=== PATIENT | female | born 1940 | race Caucasian/White ===

== ENCOUNTER 2018-11-29 13:14 | Observation (INO) | payer MEDICARE, MEDICAID ==
[2018-11-29] MEDS ORDERED: Sodium Chloride 0.9% 10 ML Syringe FLUSH PRN (13:57)
[2018-11-29] MEDS ORDERED: Acetaminophen 325 MG Tab PO PRN (15:57)
--- NOTE | 2018-11-29 16:10 | PCM.HP ---
H&P History of Present Illness - General Date of Service: 11/29/18 Admit Problem/Dx: Admission Diagnosis/Problem Admission Diagnosis/Problem Weakness Source of Information: Patient History Limitations: Reports: No Limitations - History of Present Illness Initial Comments - Free Text/Narative: This is a 78yo F with decreased appetite and decreased hydration for the past 3 days. She has been having bowel issues for months or longer. She has frequent loose stools that last all day and has been ongoing. She feels very weak and fatigued. Onset of Symptoms: Reports: Gradual Duration of Symptoms: Reports: Day(s):, Week(s):, Getting Worse Location: Reports: Generalized Severity: Moderate Improves with: Reports: None Worsens with: Reports: Movement Back Pain Score (Numeric/FACES): 5 - Related Data Allergies/Adverse Reactions: Allergies Allergy/AdvReac Type Severity Reaction Status Date / Time sulfamethoxazole Allergy yeast Verified 11/29/18 13:24 [From Bactrim] infection trimethoprim [From Bactrim] Allergy yeast Verified 11/29/18 13:24 infection amoxicillin [Amoxicillin] AdvReac Nausea Verified 11/29/18 13:24 Home Medications: Home Meds FLUoxetine [PROzac] 20 mg PO DAILY 01/27/14 [History] Lisinopril/Hydrochlorothiazide [Lisinopril-Hctz 10-12.5 mg Tab] 1 each PO DAILY 01/27/14 [History] Omeprazole [Prilosec] 20 mg PO DAILY 01/27/14 [History] traMADol [Ultram] 50 mg PO ASDIRECTED PRN 01/27/14 [History] Budesonide/Formoterol Fumarate [Symbicort 80-4.5 Mcg Inhaler] 2 inh INH BID [History] Rivaroxaban [Xarelto] 20 mg PO DAILY 11/29/18 [History] Past Medical History HEENT History: Reports: Cataract, Impaired Vision Cardiovascular History: Reports: High Cholesterol, Hypertension Respiratory History: Reports: Asthma, COPD Gastrointestinal History: Reports: GERD Genitourinary History: Reports: Urinary Incontinence 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 walking tolerance: approx 5 min, SOB noted Social & Family History - Family History Family Medical History: Noncontributory Cardiac: Reports: Pacemaker Musculoskeletal: Reports: Arthritis Hematologic: Reports: None - Tobacco Use Smoking Status *Q: Former Smoker Used Tobacco, but Quit: Yes Month/Year Tobacco Last Used: 1991 - Caffeine Use Caffeine Use: Reports: Coffee - Alcohol Use Days Per Week of Alcohol Use: 7 Number of Drinks Per Day: 2 Total Drinks Per Week: 14 Date of Last Drink: 11/27/18 - Recreational Drug Use Recreational Drug Use: No H&P Review of Systems - Review of Systems: Review Of Systems: See Below Exam - Exam Exam: See Below - Vital Signs Vital Signs: Last Vital Signs Temp 37.4 C 11/29/18 15:47 Pulse 66 11/29/18 15:47 Resp 20 11/29/18 15:47 BP 151/74 H 11/29/18 15:47 Pulse Ox 98 11/29/18 15:47 Weight: 167.2 kg - Exam General: Alert, Oriented, Cooperative HEENT: PERRLA, Conjunctiva Clear, EACs Clear, EOMI Neck: Supple, Trachea Midline Lungs: Clear to Auscultation, Normal Respiratory Effort Cardiovascular: Regular Rate, Regular Rhythm GI/Abdominal Exam: Normal Bowel Sounds, Soft, Non-Tender Back Exam: Normal Inspection Extremities: Normal Inspection, Normal Range of Motion, Non-Tender Peripheral Pulses: 2+: Dorsalis Pedis (L), Dorsalis Pedis (R) Skin: Warm, Dry, Intact - Patient Data Lab Results Last 24 hrs: Laboratory Results - last 24 hr 11/29/18 11/29/18 Range/Units 13:20 13:20 WBC 5.9 (4.0-11.0) K/uL RBC 3.73 L (3.80-5.80) M/uL Hgb 12.8 (11.5-16.5) g/dL Hct 38.5 (37.0-47.0) % MCV 103 H (76-96) fL MCH 34.3 H (27.0-32.0) pg MCHC 33.2 (31.0-35.0) g/dL RDW 13.3 (11.0-16.0) % Plt Count 207 D (150-500) K/uL MPV 9.5 (6.0-10.0) fL Neut % (Auto) 80.0 H (45.0-70.0) % Lymph % (Auto) 10.1 L (20.0-40.0) % [place] % (Auto) 9.4 (3.0-10.0) % Eos % (Auto) 0.2 L (1.0-5.0) % Baso % (Auto) 0.3 (0.0-0.5) % Neut # (Auto) 4.74 (2.00-7.50) K/uL Lymph # (Auto) 0.60 L (1.50-4.00) K/uL [place] # (Auto) 0.56 (0.20-0.80) K/uL Eos # (Auto) 0.01 L (0.04-0.40) K/uL Baso # (Auto) 0.02 (0.02-0.10) K/uL Sodium 137 (136-145) mmol/L Potassium 3.6 D (3.5-5.1) mmol/L Chloride 102 (98-107) mmol/L Carbon Dioxide 22.8 (21.0-32.0) mmol/L Anion Gap 15.8 H (5.0-15.0) mmol/L BUN 11 D (8-26) mg/dL Creatinine 1.18 H (0.55-1.02) mg/dL Est Cr Clr Drug Dosing 33.93 mL/min Estimated GFR (MDRD) 44 L (>60) MLS/MIN BUN/Creatinine Ratio 9.3 (6-25) Glucose 122 H (74-100) mg/dL Calcium 9.1 (8.5-10.1) mg/dL Total Bilirubin 0.7 D (0.0-1.0) mg/dL AST 29 (15-37) U/L ALT 26 (12-78) U/L Alkaline Phosphatase 76 (46-116) U/L Troponin I < 0.017 (0.000-0.060) ng/mL B-Natriuretic Peptide 1827 H D (0-450) pg/mL Total Protein 7.2 (6.4-8.2) g/dL Albumin 3.5 (3.4-5.0) g/dL Globulin 3.7 (2.2-4.2) g/dL Albumin/Globulin Ratio 0.9 (0.8-2.0) TSH, Ultra Sensitive 2.607 D (0.358-3.740) uIU/mL Result Diagrams: 11/29/18 13:20 11/29/18 13:20 - Problem List (1) Dehydration SNOMED Code(s): 94262843 ICD Code: E86.0 - DEHYDRATION Status: Acute Priority: High Current Visit: Yes Problem List Initiated/Reviewed/Updated: Yes Orders Last 24hrs: Active Orders 24 hr Category Date Time Status Patient Status [ADT] Routine ADT 11/29/18 15:47 Ordered EKG Documentation Completion [RC] ASDIRECTED Care 11/29/18 13:20 Active Oxygen Therapy [RC] PRN Care 11/29/18 15:47 Ordered Up With Assistance [RC] ASDIRECTED Care 11/29/18 15:46 Ordered Vital Signs [RC] Q4H Care 11/29/18 15:47 Ordered Chest 1V Frontal [CR] Stat Exams 11/29/18 13:20 Taken CULTURE MRSA SURVEY [RM] Routine Lab 11/29/18 16:01 Ordered UA W/MICROSCOPIC [URIN] Routine Lab 11/29/18 16:01 Ordered Acetaminophen [Tylenol] Med 11/29/18 15:57 Ordered 650 mg PO Q6H PRN Dextrose 5%-Lactated Ringers @ 150 MLS/HR(1,000ml) Med 11/29/18 16:00 Ordered Dextrose 5%-Lactated Ringers 1,000 ml IV ASDIRECTED Sodium Chloride 0.9% [Saline Flush] Med 11/29/18 13:57 Active 10 ml FLUSH ASDIRECTED PRN Peripheral IV Insertion Adult [OM.PC] Routine Oth 11/29/18 13:57 Ordered Medication Orders Acetaminophen (Tylenol) 650 mg PO Q6H PRN PRN Reason: Pain Dextrose/Lactated Ringer's (Dextrose 5%-Lactated Ringers) 1,000 mls @ 150 mls/ hr IV ASDIRECTED AUGUST Sodium Chloride (Saline Flush) 10 ml FLUSH ASDIRECTED PRN PRN Reason: Keep Vein Open Assessment/Plan Comment:: Counseled on hydration and elevated BNP. Discussed close monitoring and f/u labs in am. Continue gentle hydration at this time. F/u Stool testing.
[2018-11-29] MEDS ORDERED: Acetaminophen 650 MG Tab.ER ONE (16:31)
[2018-11-29] MEDS: Dextrose 5%-Lactated Ringers 1,000 ML IV SCH ×2 (16:38→23:04)
[2018-11-29] MEDS ORDERED: traMADol 50 MG Tab PO PRN (17:05)
--- NOTE | 2018-11-29 17:20 | CR ---
DATE OF SERVICE: 11/29/18 CLINICAL DATA: not feeling well AP PORTABLE CHEST: Comparison is made to a prior exam dated 06/24/15. There is a cardiac pacer overlying the left chest with the distal pacer wires in the region of the right atrium and right ventricle. The heart size is normal. There is calcification of the aortic arch. The lungs are clear. No pneumothorax. No pleural effusions. No areas of consolidation. No evidence of acute intrathoracic disease. [id number] [facility]
[2018-11-29] MEDS ORDERED: Docusate Sodium 100 MG Cap PO PRN (17:37)
[2018-11-29] MEDS ORDERED: Fluconazole 150 MG Tab PO ONE (17:38)
[2018-11-29] MEDS ORDERED: Promethazine 12.5 MG in Sodium Chloride 0.9% 50 ML IV PRN (17:39)
[2018-11-29] MEDS ORDERED: Morphine 2 MG/ML Syringe IVPUSH PRN (17:40)
[2018-11-29] MEDS: Oseltamivir 75 MG Cap PO SCH (20:30)
[2018-11-29] MEDS: Non-Formulary Medication 1 Each (Budesonide/Formoterol Fumarate [Symbicort 80-4.5 Mcg Inha INH SCH (20:33)
[2018-11-29] MEDS ORDERED: RIVAROXABAN 20 MG PO SCH (21:00)
[2018-11-29] MEDS: LISINOPRIL 40 MG PO SCH (22:58)
[2018-11-30 07:51] VITALS: BP 158/86
[2018-11-30] MEDS ORDERED: Omeprazole 20 MG Cap.CR PO SCH ×2 (08:00→20:00)
[2018-11-30] MEDS ORDERED: FLUoxetine 20 MG Cap PO SCH (08:00)
[2018-11-30] MEDS: Oseltamivir 75 MG Cap PO SCH (08:16)
[2018-11-30] MEDS: Non-Formulary Medication 1 Each (Budesonide/Formoterol Fumarate [Symbicort 80-4.5 Mcg Inha INH SCH (08:16)
[2018-11-30] MEDS: LISINOPRIL 40 MG PO SCH (09:29)
--- NOTE | 2018-11-30 10:28 | PCM.PN ---
- General Info Date of Service: 11/30/18 Subjective Update: Patient feels 50% improved. She does continue to feel weak. She has a slightly improved appetite. She denies any other issues at this time. Functional Status: Reports: Tolerating Diet, Ambulating - Review of Systems General: Reports: Weakness HEENT: Reports: No Symptoms Pulmonary: Reports: No Symptoms Cardiovascular: Reports: No Symptoms Gastrointestinal: Reports: Diarrhea Genitourinary: Reports: No Symptoms Musculoskeletal: Reports: No Symptoms - Patient Data Vitals - Most Recent: Last Vital Signs Temp 36.8 C 11/30/18 07:49 Pulse 85 11/30/18 07:49 Resp 18 11/30/18 07:49 BP 158/86 H 11/30/18 07:49 Pulse Ox 97 11/30/18 07:49 Weight - Most Recent: 77.111 kg Lab Results Last 24 Hours: Laboratory Results - last 24 hr 11/29/18 11/29/18 11/29/18 Range/Units 13:20 13:20 16:00 WBC 5.9 (4.0-11.0) K/uL RBC 3.73 L (3.80-5.80) M/uL Hgb 12.8 (11.5-16.5) g/dL Hct 38.5 (37.0-47.0) % MCV 103 H (76-96) fL MCH 34.3 H (27.0-32.0) pg MCHC 33.2 (31.0-35.0) g/dL RDW 13.3 (11.0-16.0) % Plt Count 207 D (150-500) K/uL MPV 9.5 (6.0-10.0) fL Neut % (Auto) 80.0 H (45.0-70.0) % Lymph % (Auto) 10.1 L (20.0-40.0) % [place] % (Auto) 9.4 (3.0-10.0) % Eos % (Auto) 0.2 L (1.0-5.0) % Baso % (Auto) 0.3 (0.0-0.5) % Neut # (Auto) 4.74 (2.00-7.50) K/uL Lymph # (Auto) 0.60 L (1.50-4.00) K/uL [place] # (Auto) 0.56 (0.20-0.80) K/uL Eos # (Auto) 0.01 L (0.04-0.40) K/uL Baso # (Auto) 0.02 (0.02-0.10) K/uL Sodium 137 (136-145) mmol/L Potassium 3.6 D (3.5-5.1) mmol/L Chloride 102 (98-107) mmol/L Carbon Dioxide 22.8 (21.0-32.0) mmol/L Anion Gap 15.8 H (5.0-15.0) mmol/L BUN 11 D (8-26) mg/dL Creatinine 1.18 H (0.55-1.02) mg/dL Est Cr Clr Drug Dosing 33.93 mL/min Estimated GFR (MDRD) 44 L (>60) MLS/MIN BUN/Creatinine Ratio 9.3 (6-25) Glucose 122 H (74-100) mg/dL Calcium 9.1 (8.5-10.1) mg/dL Total Bilirubin 0.7 D (0.0-1.0) mg/dL AST 29 (15-37) U/L ALT 26 (12-78) U/L Alkaline Phosphatase 76 (46-116) U/L Troponin I < 0.017 (0.000-0.060) ng/mL B-Natriuretic Peptide 1827 H D (0-450) pg/mL Total Protein 7.2 (6.4-8.2) g/dL Albumin 3.5 (3.4-5.0) g/dL Globulin 3.7 (2.2-4.2) g/dL Albumin/Globulin Ratio 0.9 (0.8-2.0) TSH, Ultra Sensitive 2.607 D (0.358-3.740) uIU/mL Urine Color Yellow Urine Appearance Clear (CLEAR) Urine pH 6.0 (5.0-8.0) Ur Specific [place] 1.025 (1.003-1.030) Urine Protein 100 H (NEGATIVE) mg/dL Urine Glucose (UA) Negative (NEGATIVE) mg/dL Urine Ketones 15 H (NEGATIVE) mg/dL Urine Occult Blood Moderate H (NEGATIVE) Urine Nitrite Negative (NEGATIVE) Urine Bilirubin Small H (NEGATIVE) Urine Urobilinogen 0.2 (0.2-1.0) E.U./dL Ur Leukocyte Esterase Negative (NEGATIVE) Urine RBC 0-5 H /HPF Urine WBC 0-5 H /HPF Ur Squamous Epith Cells Moderate /HPF Urine Bacteria Moderate H /HPF 11/30/18 11/30/18 Range/Units 07:10 07:10 WBC 3.3 L D (4.0-11.0) K/uL RBC 3.14 L (3.80-5.80) M/uL Hgb 10.7 L (11.5-16.5) g/dL Hct 32.8 L (37.0-47.0) % MCV 105 H (76-96) fL MCH 34.1 H (27.0-32.0) pg MCHC 32.6 (31.0-35.0) g/dL RDW 13.2 (11.0-16.0) % Plt Count 182 (150-500) K/uL MPV 9.6 (6.0-10.0) fL Neut % (Auto) 49.1 (45.0-70.0) % Lymph % (Auto) 30.2 (20.0-40.0) % [place] % (Auto) 19.8 H (3.0-10.0) % Eos % (Auto) 0.6 L (1.0-5.0) % Baso % (Auto) 0.3 (0.0-0.5) % Neut # (Auto) 1.64 L (2.00-7.50) K/uL Lymph # (Auto) 1.01 L (1.50-4.00) K/uL [place] # (Auto) 0.66 (0.20-0.80) K/uL Eos # (Auto) 0.02 L (0.04-0.40) K/uL Baso # (Auto) 0.01 L (0.02-0.10) K/uL Sodium 138 (136-145) mmol/L Potassium 4.1 (3.5-5.1) mmol/L Chloride 101 (98-107) mmol/L Carbon Dioxide 27.6 D (21.0-32.0) mmol/L Anion Gap 13.5 (5.0-15.0) mmol/L BUN 9 (8-26) mg/dL Creatinine 0.85 D (0.55-1.02) mg/dL Est Cr Clr Drug Dosing 47.10 mL/min Estimated GFR (MDRD) > 60 (>60) MLS/MIN BUN/Creatinine Ratio 10.6 (6-25) Glucose 117 H (74-100) mg/dL Calcium 8.5 (8.5-10.1) mg/dL Total Bilirubin 0.4 D (0.0-1.0) mg/dL AST 33 (15-37) U/L ALT 23 (12-78) U/L Alkaline Phosphatase 58 (46-116) U/L Troponin I (0.000-0.060) ng/mL B-Natriuretic Peptide (0-450) pg/mL Total Protein 6.0 L (6.4-8.2) g/dL Albumin 2.7 L (3.4-5.0) g/dL Globulin 3.3 (2.2-4.2) g/dL Albumin/Globulin Ratio 0.8 (0.8-2.0) TSH, Ultra Sensitive (0.358-3.740) uIU/mL Urine Color Urine Appearance (CLEAR) Urine pH (5.0-8.0) Ur Specific [place] (1.003-1.030) Urine Protein (NEGATIVE) mg/dL Urine Glucose (UA) (NEGATIVE) mg/dL Urine Ketones (NEGATIVE) mg/dL Urine Occult Blood (NEGATIVE) Urine Nitrite (NEGATIVE) Urine Bilirubin (NEGATIVE) Urine Urobilinogen (0.2-1.0) E.U./dL Ur Leukocyte Esterase (NEGATIVE) Urine RBC /HPF Urine WBC /HPF Ur Squamous Epith Cells /HPF Urine Bacteria /HPF Abdi Results Last 24 Hours: Microbiology 11/29/18 16:00 Urine Culture - Preliminary Urine, Voided No Growth 11/29/18 17:20 Influenza Type A Antigen Screen - Final Nasal Aspirate, Unspecified Positive Influenza A Ag Influenza Type B Antigen Screen - Final NEGATIVE INFLUENZA B VIRUS AG REFERENCE RANGE: NEGATIVE Med Orders - Current: Current Medications Acetaminophen (Tylenol) 650 mg PO Q6H PRN PRN Reason: Pain Last Admin: 11/29/18 16:36 Dose: 650 mg Amlodipine Besylate (Norvasc) 2.5 mg PO BEDTIME AUGUST Fluoxetine HCl (Prozac) 20 mg PO DAILY AUGUST Last Admin: 11/30/18 09:29 Dose: Not Given Dextrose/Lactated Ringer's (Dextrose 5%-Lactated Ringers) 1,000 mls @ 150 mls/ hr IV ASDIRECTED [facility] Last Admin: 11/29/18 23:04 Dose: 150 mls/hr Lisinopril (Prinivil) 20 mg PO DAILY [facility] Last Admin: 11/30/18 09:29 Dose: Not Given Non-Formulary Medication (Budesonide/Formoterol Fumarate [Symbicort 80-4.5 Mcg Inhaler]) 2 inh INH BID [facility] Last Admin: 11/30/18 08:16 Dose: 2 inh Omeprazole (Omeprazole) 20 mg PO DAILY [facility] Last Admin: 11/30/18 09:28 Dose: Not Given Oseltamivir Phosphate (Tamiflu) 75 mg PO BID [facility] Stop: 12/04/18 20:00 Last Admin: 11/30/18 08:16 Dose: 75 mg Rivaroxaban (Xarelto) 20 mg PO DAILY@1800 [facility] Last Admin: 11/29/18 20:57 Dose: 20 mg Sodium Chloride (Saline Flush) 10 ml FLUSH ASDIRECTED PRN PRN Reason: Keep Vein Open Tramadol HCl (Ultram) 50 mg PO Q4H PRN PRN Reason: Pain Last Admin: 11/29/18 20:58 Dose: 50 mg Discontinued Medications Acetaminophen (Tylenol Arthritis Pain) Confirm Administered Dose 650 mg .ROUTE .STK-MED ONE Stop: 11/29/18 16:32 Last Admin: 11/29/18 16:35 Dose: Not Given Non-Formulary Medication (Lisinopril/Hydrochlorothiazide [Lisinopril-Hctz 10- 12.5 Mg Tab]) 1 each PO DAILY [facility] Tramadol HCl (Ultram) 50 mg PO ASDIRECTED PRN PRN Reason: Pain - Exam General: Alert, Oriented, Cooperative HEENT: Pupils Equal, Pupils Reactive, EOMI Neck: Supple Lungs: Clear to Auscultation, Normal Respiratory Effort Cardiovascular: Regular Rate, Regular Rhythm GI/Abdominal Exam: Soft, Non-Tender, Abnormal Bowel Sounds (hyperactive) Extremities: Normal Inspection - Problem List & Annotations (1) Dehydration SNOMED Code(s): 87453629 Code(s): E86.0 - DEHYDRATION Status: Acute Priority: High Current Visit : Yes (2) Influenza A SNOMED Code(s): 206552211 Code(s): J10.1 - FLU DUE TO OTH IDENT INFLUENZA VIRUS W OTH RESP MANIFEST Status: Acute Priority: High Current Visit: Yes (3) Diarrhea SNOMED Code(s): 81399854 Code(s): R19.7 - DIARRHEA, UNSPECIFIED Status: Acute Priority: High Current Visit: Yes Qualifiers: Diarrhea type: presumed infectious Qualified Code(s): R19.7 - Diarrhea, unspecified (4) Renal dysfunction Status: Resolved Priority: Medium Current Visit: Yes - Problem List Review Problem List Initiated/Reviewed/Updated: Yes - My Orders Last 24 Hours: My Active Orders 11/29/18 13:57 Sodium Chloride 0.9% [Saline Flush] 10 ml FLUSH ASDIRECTED PRN Peripheral IV Insertion Adult [OM.PC] Routine 11/29/18 15:46 Up With Assistance [RC] ASDIRECTED 11/29/18 15:47 Patient Status [ADT] Routine Oxygen Therapy [RC] PRN Vital Signs [RC] 00,04,08,12,16,20 11/29/18 15:57 Acetaminophen [Tylenol] 650 mg PO Q6H PRN 11/29/18 16:00 CULTURE MRSA SURVEY [RM] Routine CULTURE URINE [RM] Routine Dextrose 5%-Lactated Ringers 1,000 ml IV ASDIRECTED 11/29/18 16:11 Isolation [COMM] Stat 11/29/18 18:32 traMADol [Ultram] 50 mg PO Q4H PRN 11/29/18 20:00 Budesonide/Formoterol Fumarate [Symbicort 80-4.5 Mcg Inhaler] 2 inh INH BID Oseltamivir [Tamiflu] 75 mg PO BID 11/29/18 20:05 CLOSTRIDIUM DIFFICILE BY PCR [RM] Routine 11/29/18 21:00 Rivaroxaban [Xarelto] 20 mg PO DAILY@1800 11/29/18 23:45 Lisinopril [Prinivil] 20 mg PO DAILY 11/30/18 08:00 FLUoxetine [PROzac] 20 mg PO DAILY Omeprazole 20 mg PO DAILY 11/30/18 20:00 amLODIPine [Norvasc] 2.5 mg PO BEDTIME 11/30/18 Breakfast Regular Diet [DIET] - Plan Plan:: Counseled on hydration and elevated BNP. Discussed close monitoring and f/u labs in am. Continue gentle hydration at this time. F/u Stool testing. 11/30/18 Patient started on Tamiflu last night. Counseled on medication and continued treatment. Will discuss with family for exposure and contacts. Patient does feel she could go home as she lives with her daughter but continues to feel weak. We will discuss with daughter regarding home safety. Renal concerns and dehydration resolving.
--- NOTE | 2018-11-30 14:53 | PCM.DCSUM1 ---
Discharge Summary - Discharge Data Discharge Date: 11/30/18 Discharge Disposition: Home, Self-Care 01 Condition: Good - Discharge Diagnosis/Problem(s) (1) Dehydration SNOMED Code(s): 03994623 ICD Code: E86.0 - DEHYDRATION Status: Acute Priority: High Current Visit: Yes (2) Influenza A SNOMED Code(s): 888312938 ICD Code: J10.1 - FLU DUE TO OTH IDENT INFLUENZA VIRUS W OTH RESP MANIFEST Status: Acute Priority: High Current Visit: Yes (3) Diarrhea SNOMED Code(s): 98458830 ICD Code: R19.7 - DIARRHEA, UNSPECIFIED Status: Acute Priority: High Current Visit: Yes Qualifiers: Diarrhea type: unspecified type Qualified Code(s): R19.7 - Diarrhea, unspecified (4) Renal dysfunction Status: Resolved Priority: Medium Current Visit: Yes - Patient Instructions Diet: Usual Diet as Tolerated - Discharge Plan Prescriptions/Med Rec: Oseltamivir [Tamiflu] 75 mg PO BID #8 cap Home Medications: Home Meds FLUoxetine [PROzac] 20 mg PO DAILY 01/27/14 [History] Omeprazole [Prilosec] 20 mg PO DAILY 01/27/14 [History] traMADol [Ultram] 50 mg PO ASDIRECTED PRN 01/27/14 [History] Budesonide/Formoterol Fumarate [Symbicort 80-4.5 Mcg Inhaler] 2 inh INH BID [History] Lisinopril 20 mg PO BEDTIME 11/29/18 [History] Rivaroxaban [Xarelto] 20 mg PO DAILY 11/29/18 [History] amLODIPine [Norvasc] 2.5 mg PO BEDTIME 11/29/18 [History] Oseltamivir [Tamiflu] 75 mg PO BID #8 cap 11/30/18 [Rx] Patient Handouts: Influenza, Adult, [id number], Dehydration, Adult, Easy-to- Read, Low-FODMAP Eating Plan, Diet for Irritable Bowel Syndrome, Oseltamivir capsules Forms: ED Department Discharge Referrals: PCP,None [Primary Care Provider] - - Discharge Summary/Plan Comment DC Time >30 min.: Yes Discharge Summary/Plan Comment: Counseled patient and family on influenza and exposure. Daughters will both get prophylactic dose as both have not had the flu shot. Patient will finish course of total 5 days - 4 more days sent to [facility]. Patient to f/u in clinic for f/u chronic diarrhea, keep colonoscopy scheduled and allergy testing to be done. F/u as directed. - Patient Data Vitals - Most Recent: Last Vital Signs Temp 36.8 C 11/30/18 07:49 Pulse 85 11/30/18 07:49 Resp 18 11/30/18 07:49 BP 158/86 H 11/30/18 07:49 Pulse Ox 97 11/30/18 07:49 Weight - Most Recent: 77.111 kg Lab Results - Last 24 hrs: Laboratory Results - last 24 hr 11/29/18 11/30/18 11/30/18 Range/Units 16:00 07:10 07:10 WBC 3.3 L D (4.0-11.0) K/uL RBC 3.14 L (3.80-5.80) M/uL Hgb 10.7 L (11.5-16.5) g/dL Hct 32.8 L (37.0-47.0) % MCV 105 H (76-96) fL MCH 34.1 H (27.0-32.0) pg MCHC 32.6 (31.0-35.0) g/dL RDW 13.2 (11.0-16.0) % Plt Count 182 (150-500) K/uL MPV 9.6 (6.0-10.0) fL Neut % (Auto) 49.1 (45.0-70.0) % Lymph % (Auto) 30.2 (20.0-40.0) % [place] % (Auto) 19.8 H (3.0-10.0) % Eos % (Auto) 0.6 L (1.0-5.0) % Baso % (Auto) 0.3 (0.0-0.5) % Neut # (Auto) 1.64 L (2.00-7.50) K/uL Lymph # (Auto) 1.01 L (1.50-4.00) K/uL [place] # (Auto) 0.66 (0.20-0.80) K/uL Eos # (Auto) 0.02 L (0.04-0.40) K/uL Baso # (Auto) 0.01 L (0.02-0.10) K/uL Sodium 138 (136-145) mmol/L Potassium 4.1 (3.5-5.1) mmol/L Chloride 101 (98-107) mmol/L Carbon Dioxide 27.6 D (21.0-32.0) mmol/L Anion Gap 13.5 (5.0-15.0) mmol/L BUN 9 (8-26) mg/dL Creatinine 0.85 D (0.55-1.02) mg/dL Est Cr Clr Drug Dosing 47.10 mL/min Estimated GFR (MDRD) > 60 (>60) MLS/MIN BUN/Creatinine Ratio 10.6 (6-25) Glucose 117 H (74-100) mg/dL Calcium 8.5 (8.5-10.1) mg/dL Total Bilirubin 0.4 D (0.0-1.0) mg/dL AST 33 (15-37) U/L ALT 23 (12-78) U/L Alkaline Phosphatase 58 (46-116) U/L Total Protein 6.0 L (6.4-8.2) g/dL Albumin 2.7 L (3.4-5.0) g/dL Globulin 3.3 (2.2-4.2) g/dL Albumin/Globulin Ratio 0.8 (0.8-2.0) Urine Color Yellow Urine Appearance Clear (CLEAR) Urine pH 6.0 (5.0-8.0) Ur Specific [place] 1.025 (1.003-1.030) Urine Protein 100 H (NEGATIVE) mg/dL Urine Glucose (UA) Negative (NEGATIVE) mg/dL Urine Ketones 15 H (NEGATIVE) mg/dL Urine Occult Blood Moderate H (NEGATIVE) Urine Nitrite Negative (NEGATIVE) Urine Bilirubin Small H (NEGATIVE) Urine Urobilinogen 0.2 (0.2-1.0) E.U./dL Ur Leukocyte Esterase Negative (NEGATIVE) Urine RBC 0-5 H /HPF Urine WBC 0-5 H /HPF Ur Squamous Epith Cells Moderate /HPF Urine Bacteria Moderate H /HPF LAURA Results - Last 24 hrs: Microbiology 11/29/18 16:00 MRSA Surveillance Culture - Final Nares, Unspecified NO MRSA ISOLATED 11/29/18 20:05 Clostridioides difficile (PCR) - Final Stool / Feces - Stool, Liquid NEGATIVE CDIFF TOXIN 11/29/18 16:00 Urine Culture - Preliminary Urine, Voided No Growth 11/29/18 17:20 Influenza Type A Antigen Screen - Final Nasal Aspirate, Unspecified Positive Influenza A Ag Influenza Type B Antigen Screen - Final NEGATIVE INFLUENZA B VIRUS AG REFERENCE RANGE: NEGATIVE Med Orders - Current: Current Medications Acetaminophen (Tylenol) 650 mg PO Q6H PRN PRN Reason: Pain Last Admin: 11/29/18 16:36 Dose: 650 mg Amlodipine Besylate (Norvasc) 2.5 mg PO BEDTIME [facility] Fluoxetine HCl (Prozac) 20 mg PO DAILY [facility] Last Admin: 11/30/18 09:29 Dose: Not Given Dextrose/Lactated Ringer's (Dextrose 5%-Lactated Ringers) 1,000 mls @ 150 mls/ hr IV ASDIRECTED [facility] Last Admin: 11/29/18 23:04 Dose: 150 mls/hr Lisinopril (Prinivil) 20 mg PO BEDTIME [facility] Non-Formulary Medication (Budesonide/Formoterol Fumarate [Symbicort 80-4.5 Mcg Inhaler]) 2 inh INH BID [facility] Last Admin: 11/30/18 08:16 Dose: 2 inh Omeprazole (Omeprazole) 20 mg PO BEDTIME [facility] Oseltamivir Phosphate (Tamiflu) 75 mg PO BID [facility] Stop: 12/04/18 20:00 Last Admin: 11/30/18 08:16 Dose: 75 mg Rivaroxaban (Xarelto) 20 mg PO BEDTIME [facility] Sodium Chloride (Saline Flush) 10 ml FLUSH ASDIRECTED PRN PRN Reason: Keep Vein Open Tramadol HCl (Ultram) 50 mg PO Q4H PRN PRN Reason: Pain Last Admin: 11/29/18 20:58 Dose: 50 mg Discontinued Medications Acetaminophen (Tylenol Arthritis Pain) Confirm Administered Dose 650 mg .ROUTE .STK-MED ONE Stop: 11/29/18 16:32 Last Admin: 11/29/18 16:35 Dose: Not Given Lisinopril (Prinivil) 20 mg PO DAILY [facility] Last Admin: 11/30/18 09:29 Dose: Not Given Non-Formulary Medication (Lisinopril/Hydrochlorothiazide [Lisinopril-Hctz 10- 12.5 Mg Tab]) 1 each PO DAILY [facility] Omeprazole (Omeprazole) 20 mg PO DAILY [facility] Last Admin: 11/30/18 09:28 Dose: Not Given Rivaroxaban (Xarelto) 20 mg PO DAILY@1800 [facility] Last Admin: 11/29/18 20:57 Dose: 20 mg Tramadol HCl (Ultram) 50 mg PO ASDIRECTED PRN PRN Reason: Pain
[2018-11-30] MEDS ORDERED: AMLODIPINE 2.5 MG PO SCH (20:00)
[2018-11-30] MEDS ORDERED: RIVAROXABAN 20 MG PO SCH (20:00)
[2018-11-30] MEDS ORDERED: LISINOPRIL 40 MG PO SCH (20:00)
== END 2018-11-30 14:10 | disposition home or self-care (01) ==
LOC: LB.ED 13:14 → LB.MS 14:57 → UNDOADMOB 14:57 → LB.MS 15:47
PROVIDERS: ADMIT Family Medicine; ATTEND Family Medicine
DX: E86.0 Dehydration (principal); J10.1 Influenza due to other identified influenza virus with other respiratory manifestations; R19.7 Diarrhea, unspecified; N28.89 Other specified disorders of kidney and ureter; I10 Essential (primary) hypertension; E78.00 Pure hypercholesterolemia, unspecified; J44.9 Chronic obstructive pulmonary disease, unspecified; F32.9 Major depressive disorder, single episode, unspecified; K21.9 Gastro-esophageal reflux disease without esophagitis; Z88.2 Allergy status to sulfonamides; Z88.0 Allergy status to penicillin; Z88.1 Allergy status to other antibiotic agents; Z87.891 Personal history of nicotine dependence; Z79.51 Long term (current) use of inhaled steroids; Z79.01 Long term (current) use of anticoagulants; Z79.899 Other long term (current) drug therapy
CPT/HCPCS: 36415; 71045; 80053; 81001; 83880; 84443; 84484; 85025; 87086; 87493; 87804; 93005; 96360; 96361; 99285-25; A9270-GY; G0378; J7042

== ENCOUNTER 2019-01-13 07:24 | Day surgery (SDC) | payer MEDICARE, MEDICAID ==
[2019-01-13] MEDS ORDERED: Sodium Chloride 0.9% 1,000 ML IV SCH (08:00)
[2019-01-13] MEDS ORDERED: Metoclopramide 10 MG/2 ML SDV IV PRN (08:07)
[2019-01-13] MEDS ORDERED: Propofol 1,000 MG/100 ML SDV ONE (09:45)
[2019-01-13 11:33] VITALS: BP 145/80
--- NOTE | 2019-01-13 14:31 | OR ---
DATE OF OPERATION: 01/13/2019 PREOPERATIVE DIAGNOSIS: History of colon polyps. POSTOPERATIVE DIAGNOSIS: History of colon polyps. PROCEDURE: Colonoscopy with polypectomy. ANESTHESIA: MAC. ESTIMATED BLOOD LOSS: Minimal. COMPLICATIONS: None. INDICATION FOR THE PROCEDURE: The patient is a 78-year-old female who has personal history of colon polyps. Last colonoscopy was approximately 6 years ago. She has had slight change in bowel habits since that time, now has a sense of urgency immediately after eating any meals. Otherwise, no blood in the stool. DESCRIPTION OF PROCEDURE: Informed consent was obtained with the patient. The patient was taken to the operating room and placed on table in the left lateral decubitus position. Monitored anesthesia care was administered. Digital rectal exam was performed and was normal. Colonoscope was then advanced through the anus and directed into the sigmoid colon. She did have severe diverticulosis, both large and small in the sigmoid colon and a tortuous floppy sigmoid. The scope was removed and changed to a peds colonoscope. We were then able to reach the cecum with the new scope. Cecum was identified by appendiceal orifice and ileocecal valve. The colonoscope was then slowly withdrawn. She did have some minimal angioectasia of the cecum and proximal ascending colon, nothing actively bleeding. A small semipedunculated polyp was found in the transverse colon and removed with snare cautery polypectomy. Otherwise, retroflexion performed in the rectum was also otherwise unremarkable. Colonoscope was then withdrawn. FINDINGS: Transverse colon polyp, sigmoid diverticulosis and ascending colon angioectasias. RECOMMENDATIONS: Would recommend repeat surveillance colonoscopy in 5 years. Would recommend high-fiber diet for her diverticula. If she does have any bleeding in the future, would recommend cauterization of her angioectasias. High-fiber diet may also help bulk up her stools with her sense of urgency as well. ANITA/DURAN /[id number]
== END 2019-01-13 12:03 | disposition home or self-care (01) ==
LOC: LB.SDS 07:24
PROVIDERS: ATTEND Surgery
DX: D12.3 Benign neoplasm of transverse colon (principal); K57.30 Diverticulosis of large intestine without perforation or abscess without bleeding; K55.20 Angiodysplasia of colon without hemorrhage; K63.89 Other specified diseases of intestine; Z86.010 Personal history of colon polyps
CPT/HCPCS: 45385; 88305; J2704; J7030; G0121

== ENCOUNTER 2019-12-14 12:57 | Emergency (ER) | payer MEDICARE, MEDICAID ==
[2019-12-14] MEDS ORDERED: Sodium Chloride 0.9% 10 ML Syringe FLUSH PRN (13:33)
[2019-12-14 14:49] VITALS: BP 176/89; PULSE 62
--- NOTE | 2019-12-14 14:49 | EDM.PDOC ---
ED HPI GENERAL MEDICAL PROBLEM - General Chief Complaint: Cardiovascular Problem Stated Complaint: CHEST PAIN Time Seen by Provider: 12/14/19 13:40 Source of Information: Reports: Patient History Limitations: Reports: No Limitations - History of Present Illness INITIAL COMMENTS - FREE TEXT/NARRATIVE: pt presents to the ER with an episode of chest pain lasting about 30 minutes starting around [id number] today. pt states taking her blood pressure at home she noticed it was elevated to 200s systolic. pt describes pain as substernal pressure that radiates to her back. pain has completely resolved prior to her arrival in the ED. pt denies fever, SOB, dizzyness, cough, fever, chills, diaphoresis, body aches, fatigue. - Related Data Allergies Allergy/AdvReac Type Severity Reaction Status Date / Time sulfamethoxazole Allergy Nausea Verified 12/14/19 13:43 [From Bactrim] trimethoprim [From Bactrim] Allergy Nausea Verified 12/14/19 13:43 amoxicillin [Amoxicillin] AdvReac Diarrhea Verified 12/14/19 13:43 Home Meds: Home Meds FLUoxetine [PROzac] 20 mg PO DAILY 01/27/14 [History] Omeprazole [Prilosec] 20 mg PO DAILY 01/27/14 [History] traMADol [Ultram] 50 mg PO ASDIRECTED PRN 01/27/14 [History] Budesonide/Formoterol Fumarate [Symbicort 80-4.5 MCG] 2 inh INH BID PRN [History] Lisinopril 20 mg PO BEDTIME 11/29/18 [History] Rivaroxaban [Xarelto] 20 mg PO DAILY 11/29/18 [History] amLODIPine [Norvasc] 2.5 mg PO BEDTIME 11/29/18 [History] Lutein/Minerals/Vit A,C & E [Ocuvite] 1 tab PO DAILY 01/10/19 [History] Magnesium 200 mg PO BID 8 Days #16 tablet 12/14/19 [Rx] Past Medical History HEENT History: Reports: Cataract, Impaired Vision Cardiovascular History: Reports: High Cholesterol, Hypertension, Pacemaker Respiratory History: Reports: Asthma, COPD Gastrointestinal History: Reports: GERD, Other (See Below) Other Gastrointestinal History: Frequent diarrhea with occasional incontinence Genitourinary History: Reports: Urinary Incontinence 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 History: parity: 4, gravity: 4 Musculoskeletal History: Reports: Arthritis Psychiatric History: Reports: Depression Hematologic History: Reports: Anticoagulation Therapy Oncologic (Cancer) History: Reports: None - Infectious Disease History Infectious Disease History: Reports: Chicken Pox, Measles, Mumps - Past Surgical History HEENT Surgical History: Reports: Cataract Surgery, Visual Cardiovascular Surgical History: Reports: Pacer GI Surgical History: Reports: Appendectomy Female Surgical History: Reports: Oophorectomy Other Musculoskeletal Surgeries/Procedures:: LBP: no sensation changes, no pain into the LEs. walking tolerance: approx 5 min, SOB noted Social & Family History - Family History Family Medical History: Noncontributory Cardiac: Reports: Pacemaker Musculoskeletal: Reports: Arthritis Hematologic: Reports: None - Caffeine Use Caffeine Use: Reports: Coffee ED ROS GENERAL - Review of Systems Review Of Systems: Comprehensive ROS is negative, except as noted in HPI. ED EXAM, GENERAL - Physical Exam Exam: See Below Exam Limited By: No Limitations General Appearance: Alert, WD/WN, No Apparent Distress Eye Exam: Bilateral Eye: EOMI, PERRL Ears: Normal External Exam, Normal TMs Throat/Mouth: Normal Inspection, Normal Teeth, Normal Gums, Normal Voice Respiratory/Chest: No Respiratory Distress, Lungs Clear, Normal Breath Sounds, No Accessory Muscle Use, Chest Non-Tender Cardiovascular: No JVD, Diastolic Murmur (3/6) Peripheral Pulses: 2+: Radial (L), Radial (R), Dorsalis Pedis (L), Dorsalis Pedis (R) GI/Abdominal: Normal Bowel Sounds, Soft, Non-Tender Extremities: Normal Inspection, Non-Tender, No Pedal Edema Neurological: Alert, Oriented, CN II-XII Intact, Normal Cognition Psychiatric: Normal Affect, Normal Mood Skin Exam: Warm, Dry, Intact Lymphatic: No Adenopathy EKG INTERPRETATION EKG Date: 12/14/19 Time: 13:30 Rhythm: NSR [place]: RAD-Right [place] Deviation P-Wave: Present QRS: Normal ST-T: Normal QT: Normal EKG Interpretation Comments: atrial pacemaker. no ST elevations or depressions, Q waves or delta waves noted Course - Vital Signs Last Recorded V/S: Last Vital Signs Temp 98 F 12/14/19 13:39 Pulse 60 12/14/19 14:25 Resp 18 12/14/19 14:25 BP 172/87 H 12/14/19 14:25 Pulse Ox 98 12/14/19 13:56 - Orders/Labs/Meds Orders: Active Orders 24 hr Category Date Time Status Cardiac Monitoring [RC] .As Directed Care 12/14/19 13:33 Ordered EKG Documentation Completion [RC] ASDIRECTED Care 12/14/19 13:35 Ordered Chest 1V Frontal [CR] Stat Exams 12/14/19 13:35 Ordered TROPONIN I [CHEM] Stat Lab 12/14/19 14:15 Ordered Sodium Chloride 0.9% [Saline Flush] Med 12/14/19 13:33 Ordered 10 ml FLUSH ASDIRECTED PRN Peripheral IV Insertion Adult [OM.PC] Stat Oth 12/14/19 13:33 Ordered Saline Lock Insert [OM.PC] Stat Oth 12/14/19 13:33 Ordered Medication Orders Sodium Chloride (Saline Flush) 10 ml FLUSH ASDIRECTED PRN PRN Reason: Keep Vein Open Labs: Laboratory Tests 12/14/19 12/14/19 Range/Units 13:49 13:49 WBC 7.7 (4.0-11.0) K/uL RBC 3.95 (3.80-5.80) M/uL Hgb 13.0 (11.5-16.5) g/dL Hct 38.4 (37.0-47.0) % MCV 97 H (76-96) fL MCH 32.9 H (27.0-32.0) pg MCHC 33.9 (31.0-35.0) g/dL RDW 13.5 (11.0-16.0) % Plt Count 301 (150-500) K/uL MPV 8.9 (6.0-10.0) fL Neut % (Auto) 61.7 (45.0-70.0) % Lymph % (Auto) 27.5 (20.0-40.0) % [place] % (Auto) 8.4 (3.0-10.0) % Eos % (Auto) 2.0 (1.0-5.0) % Baso % (Auto) 0.4 (0.0-0.5) % Neut # (Auto) 4.73 (2.00-7.50) K/uL Lymph # (Auto) 2.11 (1.50-4.00) K/uL [place] # (Auto) 0.64 (0.20-0.80) K/uL Eos # (Auto) 0.15 (0.04-0.40) K/uL Baso # (Auto) 0.03 (0.02-0.10) K/uL Sodium 139 (136-145) mmol/L Potassium 3.9 (3.5-5.1) mmol/L Chloride 103 (98-107) mmol/L Carbon Dioxide 25.2 (21.0-32.0) mmol/L Anion Gap 14.7 (5.0-15.0) mmol/L BUN 11 D (8-26) mg/dL Creatinine 1.01 (0.55-1.02) mg/dL Est Cr Clr Drug Dosing TNP Estimated GFR (MDRD) 53 L (>60) MLS/MIN BUN/Creatinine Ratio 10.9 (6-25) Glucose 108 H (74-100) mg/dL Calcium 9.4 (8.5-10.1) mg/dL Magnesium 1.4 L (1.8-2.4) mg/dL Total Bilirubin 0.6 D (0.0-1.0) mg/dL AST 22 (15-37) U/L ALT 21 (12-78) U/L Alkaline Phosphatase 81 (46-116) U/L Total Protein 7.2 (6.4-8.2) g/dL Albumin 3.7 (3.4-5.0) g/dL Globulin 3.5 (2.2-4.2) g/dL Albumin/Globulin Ratio 1.1 (0.8-2.0) Meds: Medications Generic Name Dose Route Start Last Admin Trade Name Freq PRN Reason Stop Dose Admin Sodium Chloride 10 ml 12/14/19 13:33 Saline Flush FLUSH ASDIRECTED PRN Keep Vein Open - Radiology Interpretation Free Text/Narrative:: CXR shows no widened mediastinum, infiltrates, consolodation, cardiomegaly, pneumothoracies or bony abnormalities - Re-Assessments/Exams Free Text/Narrative Re-Assessment/Exam: 12/14/19 15:00 pt with resolved chest pain and throughout ED course has had blood pressures trending to her normal. still no chest pain during ED course. pt states she feels relieved with update on lab values and imaging results. Departure - Departure Time of Disposition: 15:00 Disposition: Home, Self-Care 01 Condition: Good Clinical Impression: Chest pain, Hypomagnesemia Referrals: PCP,None [Primary Care Provider] - Sepsis Event Note (ED) - Evaluation Sepsis Screening Result: No Definite Risk - Focused Exam Vital Signs: Vital Signs Temp Pulse Resp BP Pulse Ox 12/14/19 14:25 60 18 172/87 H 12/14/19 14:07 182/95 H 12/14/19 13:56 74 18 192/97 H 98 12/14/19 13:39 98 F 70 18 183/90 H 98 - My Orders Last 24 Hours: My Active Orders 12/14/19 13:33 Cardiac Monitoring [RC] .As Directed Sodium Chloride 0.9% [Saline Flush] 10 ml FLUSH ASDIRECTED PRN Peripheral IV Insertion Adult [OM.PC] Stat Saline Lock Insert [OM.PC] Stat 12/14/19 13:35 EKG Documentation Completion [RC] ASDIRECTED Chest 1V Frontal [CR] Stat 12/14/19 14:15 TROPONIN I [CHEM] Stat - Assessment/Plan Last 24 Hours: My Active Orders 12/14/19 13:33 Cardiac Monitoring [RC] .As Directed Sodium Chloride 0.9% [Saline Flush] 10 ml FLUSH ASDIRECTED PRN Peripheral IV Insertion Adult [OM.PC] Stat Saline Lock Insert [OM.PC] Stat 12/14/19 13:35 EKG Documentation Completion [RC] ASDIRECTED Chest 1V Frontal [CR] Stat 12/14/19 14:15 TROPONIN I [CHEM] Stat
--- NOTE | 2019-12-14 19:21 | CR ---
DATE OF SERVICE: 12/14/19 CLINICAL DATA: Chest Pain AP PORTABLE CHEST: Comparison is made to a prior exam dated 11/29/18. A cardiac pacer and pacer wires remain unchanged in position. The heart size is normal. There is calcification of the aortic arch. There is a small hiatal hernia noted posterior to the heart. The lungs are clear. No pneumothorax. No pleural effusions. [id number] [facility]
== END 2019-12-14 15:16 | disposition home or self-care (01) ==
LOC: LB.ED 12:57
DX: R07.89 Other chest pain (principal); E83.42 Hypomagnesemia; I10 Essential (primary) hypertension; J44.9 Chronic obstructive pulmonary disease, unspecified; K21.9 Gastro-esophageal reflux disease without esophagitis; F32.9 Major depressive disorder, single episode, unspecified; Z79.01 Long term (current) use of anticoagulants; Z79.899 Other long term (current) drug therapy; Z88.1 Allergy status to other antibiotic agents; Z88.2 Allergy status to sulfonamides
CPT/HCPCS: 36415; 71045; 80053; 83735; 84484; 85025; 93005; 99285-25

== ENCOUNTER 2019-12-18 19:53 | Emergency (ER) | payer MEDICARE, MEDICAID ==
[2019-12-18 20:33] VITALS: PULSE 90
[2019-12-18] MEDS ORDERED: Ketorolac 30 MG/ML SDV IM ONE (20:37)
[2019-12-18] MEDS ORDERED: methylPREDNISolone Sodium Succinate 125 MG/2 ML SDV IM ONE (20:38)
--- NOTE | 2019-12-18 20:47 | EDM.PDOC ---
ED HPI GENERAL MEDICAL PROBLEM - General Chief Complaint: General Stated Complaint: BACK PAIN Time Seen by Provider: 12/18/19 20:30 Source of Information: Reports: Patient History Limitations: Reports: No Limitations - History of Present Illness INITIAL COMMENTS - FREE TEXT/NARRATIVE: pt states history of several days of left sided back pain which have been slowly increasing over the past few days. pt states today after working in the garden she began to experience increased left lower back pain and decided to rest and take a nap. after the nap pt states she woke up and her pain had worsened so much she had difficulty getting out of bed or walking. pt denies fever, cough, chills, IV drug use, saddle anesthesia, urine hesitancy or incontinence, fecal incontinence. Left Lower Back Pain Score (Numeric/FACES): 5 - Related Data Allergies Allergy/AdvReac Type Severity Reaction Status Date / Time sulfamethoxazole Allergy Nausea Verified 12/18/19 19:58 [From Bactrim] trimethoprim [From Bactrim] Allergy Nausea Verified 12/18/19 19:58 amoxicillin [Amoxicillin] AdvReac Diarrhea Verified 12/18/19 19:58 Home Meds: Home Meds FLUoxetine [PROzac] 20 mg PO DAILY 01/27/14 [History] Omeprazole [Prilosec] 20 mg PO DAILY 01/27/14 [History] traMADol [Ultram] 50 mg PO ASDIRECTED PRN 01/27/14 [History] Budesonide/Formoterol Fumarate [Symbicort 80-4.5 MCG] 2 inh INH BID PRN [History] Lisinopril 20 mg PO BEDTIME 11/29/18 [History] Rivaroxaban [Xarelto] 20 mg PO DAILY 11/29/18 [History] amLODIPine [Norvasc] 2.5 mg PO BEDTIME 11/29/18 [History] Lutein/Minerals/Vit A,C & E [Ocuvite] 1 tab PO DAILY 01/10/19 [History] Magnesium 200 mg PO BID 8 Days #16 tablet 12/14/19 [Rx] predniSONE 20 mg PO WITHBREAKFAST 5 Days #5 tab 12/18/19 [Rx] tiZANidine HCl [Zanaflex] 2 mg PO BID PRN 5 Days #10 capsule 12/18/19 [Rx] Past Medical History HEENT History: Reports: Cataract, Impaired Vision Cardiovascular History: Reports: High Cholesterol, Hypertension, Pacemaker Respiratory History: Reports: Asthma, COPD Gastrointestinal History: Reports: GERD, Other (See Below) Other Gastrointestinal History: Frequent diarrhea with occasional incontinence Genitourinary History: Reports: Urinary Incontinence 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: 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: 4, gravity: 4 Musculoskeletal History: Reports: Arthritis Psychiatric History: Reports: Depression Hematologic History: Reports: Anticoagulation Therapy Oncologic (Cancer) History: Reports: None - Infectious Disease History Infectious Disease History: Reports: Chicken Pox, Measles, Mumps - Past Surgical History HEENT Surgical History: Reports: Cataract Surgery, Visual Cardiovascular Surgical History: Reports: Pacer GI Surgical History: Reports: Appendectomy Female Surgical History: Reports: Oophorectomy Other Musculoskeletal Surgeries/Procedures:: LBP: no sensation changes, no pain into the LEs. walking tolerance: approx 5 min, SOB noted Social & Family History - Family History Family Medical History: Noncontributory Cardiac: Reports: Pacemaker Musculoskeletal: Reports: Arthritis Hematologic: Reports: None - Tobacco Use Smoking Status *Q: Unknown Ever Smoked Second Hand Smoke Exposure: No - Caffeine Use Caffeine Use: Reports: Coffee - Recreational Drug Use Recreational Drug Use: No ED ROS GENERAL - Review of Systems Review Of Systems: Comprehensive ROS is negative, except as noted in HPI. ED EXAM, GENERAL - Physical Exam Exam: See Below Exam Limited By: No Limitations General Appearance: Alert, WD/WN, Mild Distress (secondary to back pain.) Eye Exam: Bilateral Eye: EOMI, PERRL Throat/Mouth: Normal Inspection, Normal Oropharynx, Normal Voice, No Airway Compromise Head: Atraumatic, Normocephalic Neck: Normal Inspection Respiratory/Chest: No Respiratory Distress, Lungs Clear, Normal Breath Sounds, Chest Non-Tender Cardiovascular: Normal Peripheral Pulses, No Edema, No Gallop, No Murmur, No Rub Peripheral Pulses: 2+: Radial (L), Radial (R), Dorsalis Pedis (L), Dorsalis Pedis (R) GI/Abdominal: Normal Bowel Sounds, Soft, Non-Tender Back Exam: Decreased Range of Motion, Muscle Spasm, Paraspinal Tenderness (left side) Extremities: Normal Inspection, Non-Tender, No Pedal Edema, Normal Capillary Refill Neurological: Alert, Oriented, CN II-XII Intact, Normal Cognition, No Motor/ Sensory Deficits Psychiatric: Normal Affect, Normal Mood Skin Exam: Warm, Dry, Intact Course - Vital Signs Last Recorded V/S: Last Vital Signs Temp 99 F 12/18/19 20:31 Pulse 90 12/18/19 20:31 Resp 20 12/18/19 20:31 BP 186/100 H 12/18/19 20:31 Pulse Ox 98 12/18/19 20:31 - Orders/Labs/Meds Meds: Medications Discontinued Medications Generic Name Dose Route Start Last Admin Trade Name Freq PRN Reason Stop Dose Admin Ketorolac Tromethamine 15 mg 12/18/19 20:37 Toradol IM 12/18/19 20:38 ONETIME ONE Methylprednisolone Sodium Succinate 60 mg 12/18/19 20:38 Solu-Medrol IM 12/18/19 20:39 ONETIME ONE - Re-Assessments/Exams Free Text/Narrative Re-Assessment/Exam: 12/18/19 2130 pt able to ambulate in the ED about 20 steps successfully. pain, although improved, still problematic for pt during ambulation. 12/18/19 2200: pt up to ambulate in ED with improved comfort post baclofen. pt discharged home in care of daughter Departure - Departure Time of Disposition: 20:58 Disposition: Home, Self-Care 01 Condition: Fair Clinical Impression: Back pain with left-sided sciatica - Discharge Information *PRESCRIPTION DRUG MONITORING PROGRAM REVIEWED*: No *COPY OF PRESCRIPTION DRUG MONITORING REPORT IN PATIENT ARNOL: No Prescriptions: predniSONE 20 mg PO WITHBREAKFAST 5 Days #5 tab tiZANidine HCl [Zanaflex] 2 mg PO BID PRN 5 Days #10 capsule PRN Reason: Muscle Spasm Forms: ED Department Discharge Additional Instructions: tylenol 1,000mg four times a day ibuprofen 600mg four times a day OR aleve 500mg one or two times a day for the next 5 days prednisone 20mg a day for the next 5 days take the zanaflex twice a day without food take the prednisone and NSAID with food Sepsis Event Note (ED) - Evaluation Sepsis Screening Result: No Definite Risk - Focused Exam Vital Signs: Vital Signs Temp Pulse Resp BP Pulse Ox 12/18/19 20:31 99 F 90 20 186/100 H 98 12/18/19 20:30 99 F 90 20 186/100 H 98 - Problem List & Annotations (1) Back pain with left-sided sciatica SNOMED Code(s): 362484123, [id number] Code(s): M54.32 - SCIATICA, LEFT SIDE Status: Acute Current Visit: No - Problem List Review Problem List Initiated/Reviewed/Updated: Yes - Assessment/Plan Assessment:: left side back pain with sciatica Plan: tylenol 1,000mg four times a day ibuprofen 600mg four times a day OR aleve 500mg one or two times a day for the next 5 days prednisone 20mg a day for the next 5 days take the prednisone and NSAID with food
[2019-12-18 21:00] VITALS: BP 173/85
[2019-12-18] MEDS ORDERED: tiZANidine 4 MG Tab PO STA (21:49)
[2019-12-18] MEDS ORDERED: Baclofen 10 MG Tab PO ONE (22:00)
[2019-12-18] MEDS ORDERED: Baclofen 10 MG Tab ONE (22:03)
== END 2019-12-18 22:14 | disposition home or self-care (01) ==
LOC: LB.ED 19:53
DX: M54.42 Lumbago with sciatica, left side (principal); F32.9 Major depressive disorder, single episode, unspecified; J44.9 Chronic obstructive pulmonary disease, unspecified; I10 Essential (primary) hypertension; E78.00 Pure hypercholesterolemia, unspecified; K21.9 Gastro-esophageal reflux disease without esophagitis; Z88.2 Allergy status to sulfonamides; Z88.1 Allergy status to other antibiotic agents; Z79.899 Other long term (current) drug therapy
CPT/HCPCS: 96372; 99283; A0425; A0429; A9270; J1885; J2930

== ENCOUNTER 2020-01-09 13:17 | Observation (INO) | payer MEDICARE, MEDICAID ==
[2020-01-09] MEDS ORDERED: Aspirin 81 MG Tab.Chew PO ONE (13:34)
[2020-01-09] MEDS ORDERED: Sodium Chloride 0.9% 1,000 ML IV ONE (14:58)
--- NOTE | 2020-01-09 16:12 | EDM.PDOC ---
ED HPI GENERAL MEDICAL PROBLEM - General Chief Complaint: General Stated Complaint: CHEST PAIN/SOB Time Seen by Provider: 01/09/20 13:30 Source of Information: Reports: Patient History Limitations: Reports: No Limitations - History of Present Illness INITIAL COMMENTS - FREE TEXT/NARRATIVE: Patient is a 79 y/o female, with PMHx significant for pacemaker, who presents with chest pain. She states she has been having intermittent chest pain the past few days with exertion that lasts for a few seconds, then resolves. Patient states she has associated shortness of breath and diaphoresis. Her last cardiac work up was 3 years ago. Daughter states this has happened before and usually when she is walking around. Patient denies chest pain at this time and states it resolved prior to coming into the ED. She denies RYAN, dizziness, vision changes, blurry vision, cough, abdominal pain, N/V/D, constipation, numbness/tingling. - Related Data Allergies Allergy/AdvReac Type Severity Reaction Status Date / Time sulfamethoxazole Allergy Nausea Verified 12/18/19 19:58 [From Bactrim] trimethoprim [From Bactrim] Allergy Nausea Verified 12/18/19 19:58 amoxicillin [Amoxicillin] AdvReac Diarrhea Verified 12/18/19 19:58 Home Meds: Home Meds FLUoxetine [PROzac] 20 mg PO DAILY 01/27/14 [History] Omeprazole [Prilosec] 20 mg PO DAILY 01/27/14 [History] traMADol [Ultram] 50 mg PO ASDIRECTED PRN 01/27/14 [History] Budesonide/Formoterol Fumarate [Symbicort 80-4.5 MCG] 2 inh INH BID PRN 11/29/18 [History] Lisinopril 20 mg PO BEDTIME 11/29/18 [History] Rivaroxaban [Xarelto] 20 mg PO DAILY 11/29/18 [History] amLODIPine [Norvasc] 2.5 mg PO BEDTIME 11/29/18 [History] Lutein/Minerals/Vit A,C & E [Ocuvite] 1 tab PO DAILY 01/10/19 [History] Magnesium 200 mg PO BID 8 Days #16 tablet 12/14/19 [Rx] predniSONE 20 mg PO WITHBREAKFAST 5 Days #5 tab 12/18/19 [Rx] tiZANidine HCl [Zanaflex] 2 mg PO BID PRN 5 Days #10 capsule 12/18/19 [Rx] Past Medical History HEENT History: Reports: Cataract, Impaired Vision Cardiovascular History: Reports: High Cholesterol, Hypertension, Pacemaker Respiratory History: Reports: Asthma, COPD Gastrointestinal History: Reports: GERD, Other (See Below) Other Gastrointestinal History: Frequent diarrhea with occasional incontinence Genitourinary History: Reports: Urinary Incontinence PLACEMENT OFFICER History: Reports: Other PLACEMENT OFFICER History: parity: 4, gravity: 4 Musculoskeletal History: Reports: Arthritis Psychiatric History: Reports: Depression Hematologic History: Reports: Anticoagulation Therapy Oncologic (Cancer) History: Reports: None - Infectious Disease History Infectious Disease History: Reports: Chicken Pox, Measles, Mumps - Past Surgical History HEENT Surgical History: Reports: Cataract Surgery, Visual Cardiovascular Surgical History: Reports: Pacer GI Surgical History: Reports: Appendectomy Female Surgical History: Reports: Oophorectomy Other Musculoskeletal Surgeries/Procedures:: LBP: no sensation changes, no pain into the LEs. walking tolerance: approx 5 min, SOB noted Social & Family History - Family History Family Medical History: Noncontributory Cardiac: Reports: Pacemaker Musculoskeletal: Reports: Arthritis Hematologic: Reports: None - Caffeine Use Caffeine Use: Reports: Coffee ED ROS GENERAL - Review of Systems Review Of Systems: Comprehensive ROS is negative, except as noted in HPI. ED EXAM, GENERAL - Physical Exam Exam: See Below Exam Limited By: No Limitations General Appearance: Alert, No Apparent Distress Head: Atraumatic, Normocephalic Respiratory/Chest: No Respiratory Distress, Lungs Clear, Normal Breath Sounds, No Accessory Muscle Use, Chest Non-Tender Cardiovascular: Normal Peripheral Pulses, Regular Rate, Rhythm, No Edema, No Murmur Peripheral Pulses: 2+: Radial (L), Radial (R), Posterior Tibial (L), Posterior Tibial (R), Dorsalis Pedis (L), Dorsalis Pedis (R) GI/Abdominal: Normal Bowel Sounds, Soft, Non-Tender, No Distention Extremities: Normal Inspection, Normal Range of Motion, Non-Tender, No Pedal Edema, Normal Capillary Refill Neurological: Alert, Oriented, CN II-XII Intact, Normal Cognition, Normal Gait, No Motor/Sensory Deficits Psychiatric: Normal Affect, Normal Mood Skin Exam: Warm, Dry, Intact, Normal Color EKG INTERPRETATION EKG Date: 01/09/20 Time: 13:40 Rhythm: Other Rate (Beats/Min): 61 [place]: Normal P-Wave: Present QRS: Normal ST-T: Normal QT: Normal EKG Interpretation Comments: Pacemaker. Repeat EKG 01/09/20 @ 1601 - pacemaker, 61 bpm, NAD, no ST/t wave abnormalities; unchanged from previous EKG Course - Vital Signs Text/Narrative:: Patient with negative CXR, EKG, and troponin. She does have some mild renal insufficiency. Will admit for chest pain rule out in observation and gentle hydration. Dr. Andrew informed and will see her in the morning. Stress test will be scheduled for next Wednesday. Last Recorded V/S: Last Vital Signs Temp 36.5 C 01/10/20 07:44 Pulse 66 01/10/20 07:44 Resp 16 01/10/20 07:44 BP 169/60 H 01/10/20 07:44 Pulse Ox 100 01/10/20 07:44 - Orders/Labs/Meds Orders: Medication Orders Acetaminophen (Tylenol) 650 mg PO Q4H PRN PRN Reason: Pain Last Admin: 01/09/20 17:10 Dose: 650 mg Documented by: ROMEO Acetaminophen (Tylenol Arthritis Pain) 650 mg PO Q8H PRN PRN Reason: pain Last Admin: 01/10/20 08:08 Dose: 650 mg Documented by: Admin: 01/10/20 00:42 Dose: 650 mg Documented by: CARLA Amlodipine Besylate (Norvasc) 2.5 mg PO BEDTIME [facility] Last Admin: 01/09/20 21:10 Dose: 2.5 mg Documented by: ACRLA Fluoxetine HCl (Prozac) 20 mg PO BEDTIME [facility] Last Admin: 01/10/20 00:23 Dose: Not Given Documented by: CARLA Sodium Chloride (Normal Saline) 1,000 mls @ 100 mls/hr IV ASDIRECTED [facility] Last Infusion: 01/10/20 08:35 Dose: 100 mls/hr Documented by: Admin: 01/10/20 08:09 Dose: 75 mls/hr Documented by: Infusion: 01/10/20 06:31 Dose: 75 mls/hr Documented by: Admin: 01/09/20 17:11 Dose: 75 mls/hr Documented by: ROMEO Lisinopril (Prinivil) 20 mg PO DAILY [facility] Last Admin: 01/10/20 07:34 Dose: 20 mg Documented by: ROMEO Nitrofurantoin Macrocrystals (Macrobid) 100 mg PO BID [facility] Last Admin: 01/10/20 07:34 Dose: 100 mg Documented by: Admin: 01/10/20 00:34 Dose: 100 mg Documented by: CARLA Omeprazole (Omeprazole) 20 mg PO ACBREAKFAST [facility] Last Admin: 01/10/20 07:34 Dose: 20 mg Documented by: ROMEO Rivaroxaban (Xarelto) 20 mg PO WITHDINNER [facility] Last Admin: 01/09/20 21:11 Dose: 20 mg Documented by: CARLA Tramadol HCl (Ultram) 50 mg PO Q6H PRN PRN Reason: pain Last Admin: 01/10/20 07:34 Dose: 50 mg Documented by: Admin: 01/10/20 00:42 Dose: 50 mg Documented by: CARLA Labs: Laboratory Tests 01/09/20 01/09/20 01/09/20 Range/Units 13:34 13:58 14:20 WBC 17.1 H D (4.0-11.0) K/uL RBC 3.89 (3.80-5.80) M/uL Hgb 12.8 (11.5-16.5) g/dL Hct 37.9 (37.0-47.0) % MCV 97 H (76-96) fL MCH 32.9 H (27.0-32.0) pg MCHC 33.8 (31.0-35.0) g/dL RDW 13.1 (11.0-16.0) % Plt Count 262 (150-500) K/uL MPV 9.5 (6.0-10.0) fL Neut % (Auto) 86.1 H (45.0-70.0) % Lymph % (Auto) 6.9 L (20.0-40.0) % [place] % (Auto) 6.8 (3.0-10.0) % Eos % (Auto) 0.1 L (1.0-5.0) % Baso % (Auto) 0.1 (0.0-0.5) % Neut # (Auto) 14.75 H (2.00-7.50) K/uL Lymph # (Auto) 1.18 L (1.50-4.00) K/uL [place] # (Auto) 1.17 H (0.20-0.80) K/uL Eos # (Auto) 0.01 L (0.04-0.40) K/uL Baso # (Auto) 0.02 (0.02-0.10) K/uL Sodium 135 L (136-145) mmol/L Potassium 5.2 H D (3.5-5.1) mmol/L Chloride 102 (98-107) mmol/L Carbon Dioxide 18.0 L D (21.0-32.0) mmol/L Anion Gap 20.2 H (5.0-15.0) mmol/L BUN 50 H D (8-26) mg/dL Creatinine 1.65 H D (0.55-1.02) mg/dL Est Cr Clr Drug Dosing 23.87 mL/min Estimated GFR (MDRD) 30 L (>60) MLS/MIN BUN/Creatinine Ratio 30.3 H (6-25) Glucose 128 H (74-100) mg/dL Calcium 9.8 (8.5-10.1) mg/dL Total Bilirubin 1.1 H D (0.0-1.0) mg/dL AST 18 (15-37) U/L ALT 30 (12-78) U/L Alkaline Phosphatase 75 (46-116) U/L Troponin I < 0.017 (0.000-0.060) ng/mL Total Protein 7.6 (6.4-8.2) g/dL Albumin 3.5 (3.4-5.0) g/dL Globulin 4.1 (2.2-4.2) g/dL Albumin/Globulin Ratio 0.9 (0.8-2.0) COVID-19 ([facility]) Negative Meds: Medications Generic Name Dose Route Start Last Admin Trade Name Freq PRN Reason Stop Dose Admin Acetaminophen 650 mg 01/09/20 16:55 01/09/20 17:10 Tylenol PO 650 mg Q4H PRN Administration Pain Acetaminophen 650 mg 01/09/20 19:39 01/10/20 08:08 Tylenol Arthritis Pain PO 650 mg Q8H PRN Administration pain Amlodipine Besylate 2.5 mg 01/09/20 21:00 01/09/20 21:10 Norvasc PO 2.5 mg BEDTIME [facility] Administration Fluoxetine HCl 20 mg 01/09/20 21:45 01/10/20 00:23 Prozac PO Not Given BEDTIME [facility] Sodium Chloride 1,000 mls @ 100 mls/hr 01/09/20 16:00 01/10/20 08:35 Normal Saline IV 100 mls/hr ASDIRECTED [facility] Infusion Lisinopril 20 mg 01/10/20 08:00 01/10/20 07:34 Prinivil PO 20 mg DAILY [facility] Administration Nitrofurantoin Macrocrystals 100 mg 01/09/20 23:45 01/10/20 07:34 Macrobid PO 100 mg BID [facility] Administration Omeprazole 20 mg 01/10/20 07:00 01/10/20 07:34 Omeprazole PO 20 mg ACBREAKFAST [facility] Administration Rivaroxaban 20 mg 01/09/20 21:00 01/09/20 21:11 Xarelto PO 20 mg WITHDINNER [facility] Administration Tramadol HCl 50 mg 01/09/20 19:32 01/10/20 07:34 Ultram PO 50 mg Q6H PRN Administration pain Discontinued Medications Generic Name Dose Route Start Last Admin Trade Name Freq PRN Reason Stop Dose Admin Aspirin 324 mg 01/09/20 13:34 01/09/20 13:41 Aspirin PO 01/09/20 13:35 324 mg ONETIME ONE Administration Fluoxetine HCl 10 mg 01/09/20 20:00 Prozac PO BEDTIME [facility] Fluoxetine HCl 10 mg 01/10/20 08:01 Prozac PO BEDTIME [facility] Sodium Chloride 1,000 mls @ 1,000 mls/sec 01/09/20 14:58 01/09/20 15:26 Normal Saline IV 01/09/20 14:59 1,000 mls/sec .BOLUS ONE Administration Departure - Departure Time of Disposition: 16:34 Disposition: Refer to Observation Condition: Good Clinical Impression: Chest pain Qualifiers: Chest pain type: unspecified Qualified Code(s): R07.9 - Chest pain, unspecified - Discharge Information *PRESCRIPTION DRUG MONITORING PROGRAM REVIEWED*: Not Applicable *COPY OF PRESCRIPTION DRUG MONITORING REPORT IN PATIENT ARNOL: Not Applicable Sepsis Event Note (ED) - Evaluation Sepsis Screening Result: No Definite Risk - Assessment/Plan Plan: Patient found to have UTI. Cipro started. Allergies to bactrim and amoxicillin. Dr Andrew will take over patient's care 01/10/2020.
[2020-01-09] MEDS ORDERED: Acetaminophen 325 MG Tab PO PRN (16:55)
[2020-01-09] MEDS: Sodium Chloride 0.9% 1,000 ML IV SCH (17:11)
[2020-01-09] MEDS ORDERED: FLUoxetine 10 MG Cap PO SCH (20:00)
[2020-01-09] MEDS: AMLODIPINE 2.5 MG PO SCH (21:10)
[2020-01-09] MEDS: RIVAROXABAN 20 MG PO SCH (21:11)
[2020-01-10] MEDS: FLUOXETINE 20 MG PO SCH ×2 (00:23→19:39)
[2020-01-10] MEDS: Nitrofurantoin Monohydrate/Macrocrystalline 100 MG Cap PO SCH ×3 (00:34→19:45)
[2020-01-10] MEDS: ACETAMINOPHEN 650 MG PO PRN ×3 (00:42→16:28)
--- NOTE | 2020-01-10 07:23 | CR ---
DATE OF SERVICE: 01/09/20 CLINICAL DATA: chest pain AP CHEST: Comparison is made to a prior exam dated 12/14/19. The heart and lungs are stable. No evidence of acute intrathoracic disease. [id number] [facility]
[2020-01-10] MEDS: LISINOPRIL 40 MG PO SCH (07:34)
[2020-01-10] MEDS: Omeprazole 20 MG Cap.CR*PT OWN MED PO SCH (07:34)
[2020-01-10] MEDS ORDERED: FLUoxetine 10 MG Cap PO SCH (08:01)
[2020-01-10] MEDS: Sodium Chloride 0.9% 1,000 ML IV SCH ×2 (08:09→18:25)
--- NOTE | 2020-01-10 08:31 | PCM.PN ---
- General Info Date of Service: 01/10/20 Subjective Update: Patient's symptoms improved. She notes she has had a few intermittent chest pains but have mostly resolved. - Review of Systems General: Reports: No Symptoms HEENT: Reports: No Symptoms Pulmonary: Reports: No Symptoms Cardiovascular: Reports: Chest Pain Gastrointestinal: Reports: No Symptoms Genitourinary: Reports: No Symptoms Musculoskeletal: Reports: No Symptoms Skin: Reports: No Symptoms Neurological: Reports: No Symptoms Psychiatric: Reports: No Symptoms - Patient Data Vitals - Most Recent: Last Vital Signs Temp 36.5 C 01/10/20 07:44 Pulse 66 01/10/20 07:44 Resp 16 01/10/20 07:44 BP 169/60 H 01/10/20 07:44 Pulse Ox 100 01/10/20 07:44 Weight - Most Recent: 73.936 kg Lab Results Last 24 Hours: Laboratory Results - last 24 hr 01/09/20 01/09/20 01/09/20 Range/Units 13:34 13:58 14:20 WBC 17.1 H D (4.0-11.0) K/uL RBC 3.89 (3.80-5.80) M/uL Hgb 12.8 (11.5-16.5) g/dL Hct 37.9 (37.0-47.0) % MCV 97 H (76-96) fL MCH 32.9 H (27.0-32.0) pg MCHC 33.8 (31.0-35.0) g/dL RDW 13.1 (11.0-16.0) % Plt Count 262 (150-500) K/uL MPV 9.5 (6.0-10.0) fL Neut % (Auto) 86.1 H (45.0-70.0) % Lymph % (Auto) 6.9 L (20.0-40.0) % [place] % (Auto) 6.8 (3.0-10.0) % Eos % (Auto) 0.1 L (1.0-5.0) % Baso % (Auto) 0.1 (0.0-0.5) % Neut # (Auto) 14.75 H (2.00-7.50) K/uL Lymph # (Auto) 1.18 L (1.50-4.00) K/uL [place] # (Auto) 1.17 H (0.20-0.80) K/uL Eos # (Auto) 0.01 L (0.04-0.40) K/uL Baso # (Auto) 0.02 (0.02-0.10) K/uL Sodium 135 L (136-145) mmol/L Potassium 5.2 H D (3.5-5.1) mmol/L Chloride 102 (98-107) mmol/L Carbon Dioxide 18.0 L D (21.0-32.0) mmol/L Anion Gap 20.2 H (5.0-15.0) mmol/L BUN 50 H D (8-26) mg/dL Creatinine 1.65 H D (0.55-1.02) mg/dL Est Cr Clr Drug Dosing 23.87 mL/min Estimated GFR (MDRD) 30 L (>60) MLS/MIN BUN/Creatinine Ratio 30.3 H (6-25) Glucose 128 H (74-100) mg/dL Calcium 9.8 (8.5-10.1) mg/dL Total Bilirubin 1.1 H D (0.0-1.0) mg/dL AST 18 (15-37) U/L ALT 30 (12-78) U/L Alkaline Phosphatase 75 (46-116) U/L Troponin I < 0.017 (0.000-0.060) ng/mL Total Protein 7.6 (6.4-8.2) g/dL Albumin 3.5 (3.4-5.0) g/dL Globulin 4.1 (2.2-4.2) g/dL Albumin/Globulin Ratio 0.9 (0.8-2.0) Urine Color Urine Appearance (CLEAR) Urine pH (5.0-8.0) Ur Specific [place] (1.003-1.030) Urine Protein (NEGATIVE) mg/dL Urine Glucose (UA) (NEGATIVE) mg/dL Urine Ketones (NEGATIVE) mg/dL Urine Occult Blood (NEGATIVE) Urine Nitrite (NEGATIVE) Urine Bilirubin (NEGATIVE) Urine Urobilinogen (0.2-1.0) E.U./dL Ur Leukocyte Esterase (NEGATIVE) Urine RBC /HPF Urine WBC /HPF Ur Epithelial Cells /HPF Urine Bacteria /HPF Coarse Granular Casts /HPF COVID-19 ([facility]) Negative 07/07/20 07/07/20 07/07/20 Range/Units 16:10 16:50 20:20 WBC (4.0-11.0) K/uL RBC (3.80-5.80) M/uL Hgb (11.5-16.5) g/dL Hct (37.0-47.0) % MCV (76-96) fL MCH (27.0-32.0) pg MCHC (31.0-35.0) g/dL RDW (11.0-16.0) % Plt Count (150-500) K/uL MPV (6.0-10.0) fL Neut % (Auto) (45.0-70.0) % Lymph % (Auto) (20.0-40.0) % [place] % (Auto) (3.0-10.0) % Eos % (Auto) (1.0-5.0) % Baso % (Auto) (0.0-0.5) % Neut # (Auto) (2.00-7.50) K/uL Lymph # (Auto) (1.50-4.00) K/uL [place] # (Auto) (0.20-0.80) K/uL Eos # (Auto) (0.04-0.40) K/uL Baso # (Auto) (0.02-0.10) K/uL Sodium 136 (136-145) mmol/L Potassium 4.9 (3.5-5.1) mmol/L Chloride 106 (98-107) mmol/L Carbon Dioxide 17.3 L (21.0-32.0) mmol/L Anion Gap 17.6 H (5.0-15.0) mmol/L BUN 47 H (8-26) mg/dL Creatinine 1.56 H (0.55-1.02) mg/dL Est Cr Clr Drug Dosing 25.25 mL/min Estimated GFR (MDRD) 32 L (>60) MLS/MIN BUN/Creatinine Ratio 30.1 H (6-25) Glucose 134 H (74-100) mg/dL Calcium 9.1 (8.5-10.1) mg/dL Total Bilirubin (0.0-1.0) mg/dL AST (15-37) U/L ALT (12-78) U/L Alkaline Phosphatase (46-116) U/L Troponin I < 0.017 (0.000-0.060) ng/mL Total Protein (6.4-8.2) g/dL Albumin (3.4-5.0) g/dL Globulin (2.2-4.2) g/dL Albumin/Globulin Ratio (0.8-2.0) Urine Color Yellow Urine Appearance Slightly cloudy (CLEAR) Urine pH 5.5 (5.0-8.0) Ur Specific [place] 1.020 (1.003-1.030) Urine Protein Negative (NEGATIVE) mg/dL Urine Glucose (UA) Negative (NEGATIVE) mg/dL Urine Ketones Negative (NEGATIVE) mg/dL Urine Occult Blood Moderate H (NEGATIVE) Urine Nitrite Negative (NEGATIVE) Urine Bilirubin Negative (NEGATIVE) Urine Urobilinogen 0.2 (0.2-1.0) E.U./dL Ur Leukocyte Esterase Trace H (NEGATIVE) Urine RBC 10-20 H /HPF Urine WBC 30-40 H /HPF Ur Epithelial Cells Few /HPF Urine Bacteria Moderate H /HPF Coarse Granular Casts Rare /HPF COVID-19 ([place]) // Range/Units 08:05 WBC 10.3 D (4.0-11.0) K/uL RBC 3.43 L (3.80-5.80) M/uL Hgb 11.3 L (11.5-16.5) g/dL Hct 33.8 L (37.0-47.0) % MCV 99 H (76-96) fL MCH 32.9 H (27.0-32.0) pg MCHC 33.4 (31.0-35.0) g/dL RDW 13.2 (11.0-16.0) % Plt Count 168 D (150-500) K/uL MPV 9.4 (6.0-10.0) fL Neut % (Auto) 86.8 H (45.0-70.0) % Lymph % (Auto) 7.3 L (20.0-40.0) % [place] % (Auto) 5.7 (3.0-10.0) % Eos % (Auto) 0.1 L (1.0-5.0) % Baso % (Auto) 0.1 (0.0-0.5) % Neut # (Auto) 8.92 H (2.00-7.50) K/uL Lymph # (Auto) 0.75 L (1.50-4.00) K/uL [place] # (Auto) 0.59 (0.20-0.80) K/uL Eos # (Auto) 0.01 L (0.04-0.40) K/uL Baso # (Auto) 0.01 L (0.02-0.10) K/uL Sodium (136-145) mmol/L Potassium (3.5-5.1) mmol/L Chloride (98-107) mmol/L Carbon Dioxide (21.0-32.0) mmol/L Anion Gap (5.0-15.0) mmol/L BUN (8-26) mg/dL Creatinine (0.55-1.02) mg/dL Est Cr Clr Drug Dosing mL/min Estimated GFR (MDRD) (>60) MLS/MIN BUN/Creatinine Ratio (6-25) Glucose (74-100) mg/dL Calcium (8.5-10.1) mg/dL Total Bilirubin (0.0-1.0) mg/dL AST (15-37) U/L ALT (12-78) U/L Alkaline Phosphatase (46-116) U/L Troponin I (0.000-0.060) ng/mL Total Protein (6.4-8.2) g/dL Albumin (3.4-5.0) g/dL Globulin (2.2-4.2) g/dL Albumin/Globulin Ratio (0.8-2.0) Urine Color Urine Appearance (CLEAR) Urine pH (5.0-8.0) Ur Specific [place] (1.003-1.030) Urine Protein (NEGATIVE) mg/dL Urine Glucose (UA) (NEGATIVE) mg/dL Urine Ketones (NEGATIVE) mg/dL Urine Occult Blood (NEGATIVE) Urine Nitrite (NEGATIVE) Urine Bilirubin (NEGATIVE) Urine Urobilinogen (0.2-1.0) E.U./dL Ur Leukocyte Esterase (NEGATIVE) Urine RBC /HPF Urine WBC /HPF Ur Epithelial Cells /HPF Urine Bacteria /HPF Coarse Granular Casts /HPF COVID-19 ([facility]) Med Orders - Current: Current Medications Acetaminophen (Tylenol) 650 mg PO Q4H PRN PRN Reason: Pain Last Admin: 01/09/20 17:10 Dose: 650 mg Documented by: Acetaminophen (Tylenol Arthritis Pain) 650 mg PO Q8H PRN PRN Reason: pain Last Admin: 01/10/20 08:08 Dose: 650 mg Documented by: Amlodipine Besylate (Norvasc) 2.5 mg PO BEDTIME [facility] Last Admin: 01/09/20 21:10 Dose: 2.5 mg Documented by: Fluoxetine HCl (Prozac) 20 mg PO BEDTIME [facility] Last Admin: 01/10/20 00:23 Dose: Not Given Documented by: Sodium Chloride (Normal Saline) 1,000 mls @ 100 mls/hr IV ASDIRECTED [facility] Last Admin: 01/10/20 08:09 Dose: 75 mls/hr Documented by: Lisinopril (Prinivil) 20 mg PO DAILY [facility] Last Admin: 01/10/20 07:34 Dose: 20 mg Documented by: Nitrofurantoin Macrocrystals (Macrobid) 100 mg PO BID [facility] Last Admin: 01/10/20 07:34 Dose: 100 mg Documented by: Omeprazole (Omeprazole) 20 mg PO ACBREAKFAST [facility] Last Admin: 01/10/20 07:34 Dose: 20 mg Documented by: Rivaroxaban (Xarelto) 20 mg PO WITHDINNER [facility] Last Admin: 01/09/20 21:11 Dose: 20 mg Documented by: Tramadol HCl (Ultram) 50 mg PO Q6H PRN PRN Reason: pain Last Admin: 01/10/20 07:34 Dose: 50 mg Documented by: Discontinued Medications Aspirin (Aspirin) 324 mg PO ONETIME ONE Stop: 01/09/20 13:35 Last Admin: 01/09/20 13:41 Dose: 324 mg Documented by: Fluoxetine HCl (Prozac) 10 mg PO BEDTIME [facility] Fluoxetine HCl (Prozac) 10 mg PO BEDTIME [facility] Sodium Chloride (Normal Saline) 1,000 mls @ 1,000 mls/sec IV .BOLUS ONE Stop: 01/09/20 14:59 Last Admin: 01/09/20 15:26 Dose: 1,000 mls/sec Documented by: - Exam General: Alert, Oriented, Cooperative HEENT: Pupils Equal, Pupils Reactive Lungs: Clear to Auscultation, Normal Respiratory Effort Cardiovascular: Regular Rate, Regular Rhythm GI/Abdominal Exam: Normal Bowel Sounds Extremities: Normal Inspection Peripheral Pulses: 2+: Dorsalis Pedis (L), Dorsalis Pedis (R) Skin: Warm, Dry, Intact Neurological: No New Focal Deficit Sepsis Event Note - Evaluation Sepsis Screening Result: No Definite Risk - Focused Exam Vital Signs: Vital Signs Temp Pulse Resp BP BP Pulse Ox 01/10/20 07:44 36.5 C 66 16 169/60 H 100 01/10/20 03:54 36.5 C 68 18 144/58 H 99 01/10/20 00:00 36.3 C 73 18 156/57 H 100 01/09/20 21:10 153/59 H Date Exam was Performed: 01/11/20 Time Exam was Performed: 14:04 - Problem List & Annotations (1) Chest pain SNOMED Code(s): 80964295 Code(s): R07.9 - CHEST PAIN, UNSPECIFIED Status: Acute Current Visit: Yes Qualifiers: Chest pain type: unspecified Qualified Code(s): R07.9 - Chest pain, unspecified - Problem List Review Problem List Initiated/Reviewed/Updated: Yes - My Orders Last 24 Hours: My Active Orders 01/10/20 07:44 BASIC METABOLIC PANEL,BMP [CHEM] Routine TROPONIN I [CHEM] Routine - Plan Plan:: Patient to be monitored for ongoing chest pain symptoms. If her symptoms improve and labs remain good we will consider discharge tomorrow for f/u with PCP.
--- NOTE | 2020-01-10 09:42 | CT ---
DATE OF SERVICE: 01/10/2020 CLINICAL DATA: Chest pain; Shortness of breath Unenhanced chest CT: Multislice acquisition through the chest without IV contrast was performed. No priors. There are mild emphysematous changes throughout both lungs. There are minimal atelectatic changes in both lung bases. The lungs are otherwise clear. No areas of consolidation. No pneumothorax. No pleural effusions. The heart size is normal. No significant pericardial effusion. There are mild coronary artery calcifications. There are cardiac pacer wires in place. The ascending aorta is aneurysmal. It measures 4.3 cm in diameter. There is moderate size hiatal hernia. No other significant findings. There is degenerative disc disease throughout the thoracic spine. MTDD
[2020-01-10] MEDS: RIVAROXABAN 20 MG PO SCH (19:45)
[2020-01-10] MEDS: AMLODIPINE 2.5 MG PO SCH (19:45)
[2020-01-11 01:06] VITALS: PULSE 73
[2020-01-11] MEDS: ACETAMINOPHEN 650 MG PO PRN (07:43)
[2020-01-11] MEDS: Omeprazole 20 MG Cap.CR*PT OWN MED PO SCH (07:47)
[2020-01-11] MEDS: LISINOPRIL 40 MG PO SCH (08:13)
[2020-01-11] MEDS: Nitrofurantoin Monohydrate/Macrocrystalline 100 MG Cap PO SCH (08:26)
[2020-01-11 10:31] VITALS: BP 151/70
--- NOTE | 2020-01-11 14:03 | PCM.DCSUM1 ---
Discharge Summary - Discharge Data Discharge Date: 01/11/20 Discharge Disposition: Home, Self-Care 01 Condition: Good - Referral to Home Health Primary Care Physician: PCP None - Patient Instructions Diet: Usual Diet as Tolerated Activity: As Tolerated Driving: Do Not Drive - Discharge Plan *PRESCRIPTION DRUG MONITORING PROGRAM REVIEWED*: Not Applicable *COPY OF PRESCRIPTION DRUG MONITORING REPORT IN PATIENT ARNOL: Not Applicable Prescriptions/Med Rec: RX: Nitrofurantoin [place]/Macrocryst [Nitrofurantoin [place]-MCR] 100 mg PO BID #10 cap Home Medications: Home Meds Omeprazole [Prilosec] 20 mg PO DAILY 01/27/14 [History] RX: FLUoxetine [PROzac] 20 mg PO DAILY 01/27/14 [History] traMADol [Ultram] 50 mg PO ASDIRECTED PRN 01/27/14 [History] Lisinopril 20 mg PO BEDTIME 11/29/18 [History] RX: Budesonide/Formoterol Fumarate [Symbicort 80-4.5 MCG] 2 inh INH BID PRN 11/29/18 [History] Rivaroxaban [Xarelto] 20 mg PO DAILY 11/29/18 [History] amLODIPine [Norvasc] 2.5 mg PO BEDTIME 11/29/18 [History] Lutein/Minerals/Vit A,C & E [Ocuvite] 1 tab PO DAILY 01/10/19 [History] RX: Magnesium 200 mg PO BID 8 Days #16 tablet 12/14/19 [Rx] RX: predniSONE 20 mg PO WITHBREAKFAST 5 Days #5 tab 12/18/19 [Rx] tiZANidine HCl [Zanaflex] 2 mg PO BID PRN 5 Days #10 capsule 12/18/19 [Rx] RX: Nitrofurantoin [place]/Macrocryst [Nitrofurantoin [place]-MCR] 100 mg PO BID #10 cap 01/11/20 [Rx] Patient Handouts: Abdominal Aortic Aneurysm, [id number], Chest Wall Pain, [id number], Nonspecific Chest Pain, Adult, [id number] - Discharge Summary/Plan Comment DC Time >30 min.: No Discharge Summary/Plan Comment: Patient to be discharged home. Patient will f/u in clinic next week for f/u ECHO and other imaging as needed. Nitrofurantoin sent to the Pharmacy. F/u CT chest for Thoracic Aneurysm in 3 months. - General Info Date of Service: 01/11/20 Functional Status: Reports: Pain Controlled, Tolerating Diet, Ambulating - Review of Systems General: Reports: No Symptoms HEENT: Reports: No Symptoms Pulmonary: Reports: No Symptoms Cardiovascular: Reports: No Symptoms Gastrointestinal: Reports: No Symptoms Genitourinary: Reports: No Symptoms Musculoskeletal: Reports: No Symptoms - Patient Data Vitals - Most Recent: Last Vital Signs Temp 36.4 C 01/11/20 12:00 Pulse 73 01/11/20 00:00 Resp 20 01/11/20 12:00 BP 151/70 H 01/11/20 08:00 Pulse Ox 100 01/11/20 12:00 Orthostatic Blood Pressure [ 110/83 Sitting] Weight - Most Recent: 73.936 kg I&O - Last 24 hours: Intake & Output 01/10/20 01/11/20 01/11/20 22:59 06:59 14:59 Intake Total 1200 Balance 1200 LAURA Results - Last 24 hrs: Microbiology 01/09/20 17:53 Urine Culture - Final Urine, Clean Catch Escherichia Coli Med Orders - Current: Current Medications Acetaminophen (Tylenol) 650 mg PO Q4H PRN PRN Reason: Pain Last Admin: 01/09/20 17:10 Dose: 650 mg Documented by: Acetaminophen (Tylenol Arthritis Pain) 650 mg PO Q8H PRN PRN Reason: pain Last Admin: 01/11/20 07:43 Dose: 650 mg Documented by: Amlodipine Besylate (Norvasc) 2.5 mg PO BEDTIME [facility] Last Admin: 01/10/20 19:45 Dose: 2.5 mg Documented by: Fluoxetine HCl (Prozac) 20 mg PO BEDTIME [facility] Last Admin: 01/10/20 19:39 Dose: Not Given Documented by: Sodium Chloride (Normal Saline) 1,000 mls @ 100 mls/hr IV ASDIRECTED [facility] Last Admin: 01/10/20 18:25 Dose: 100 mls/hr Documented by: Lisinopril (Prinivil) 20 mg PO DAILY [facility] Last Admin: 01/11/20 08:13 Dose: 20 mg Documented by: Nitrofurantoin Macrocrystals (Macrobid) 100 mg PO BID [facility] Last Admin: 01/11/20 08:26 Dose: 100 mg Documented by: Omeprazole (Omeprazole) 20 mg PO ACBREAKFAST [facility] Last Admin: 01/11/20 07:47 Dose: 20 mg Documented by: Rivaroxaban (Xarelto) 20 mg PO WITHDINNER [facility] Last Admin: 01/10/20 19:45 Dose: 20 mg Documented by: Tramadol HCl (Ultram) 50 mg PO Q6H PRN PRN Reason: pain Last Admin: 01/11/20 07:44 Dose: 50 mg Documented by: Discontinued Medications Aspirin (Aspirin) 324 mg PO ONETIME ONE Stop: 01/09/20 13:35 Last Admin: 01/09/20 13:41 Dose: 324 mg Documented by: Fluoxetine HCl (Prozac) 10 mg PO BEDTIME [facility] Fluoxetine HCl (Prozac) 10 mg PO BEDTIME [facility] Sodium Chloride (Normal Saline) 1,000 mls @ 1,000 mls/sec IV .BOLUS ONE Stop: 01/09/20 14:59 Last Admin: 01/09/20 15:26 Dose: 1,000 mls/sec Documented by: - Exam General: Reports: Alert, Oriented HEENT: Reports: Pupils Equal, Pupils Reactive Neck: Reports: Supple Lungs: Reports: Clear to Auscultation, Normal Respiratory Effort Cardiovascular: Reports: Regular Rate, Regular Rhythm GI/Abdominal Exam: Normal Bowel Sounds, Soft, Non-Tender Extremities: Normal Inspection Skin: Reports: Warm, Dry, Intact Neurological: Reports: No New Focal Deficit Psy/Mental Status: Reports: Alert, Normal Affect, Normal Mood
== END 2020-01-11 14:45 | disposition home or self-care (01) ==
LOC: LB.ED 13:17 → LB.MS 15:46
PROVIDERS: ADMIT Physician Assistant; ATTEND Physician Assistant
DX: R07.9 Chest pain, unspecified (principal); N39.0 Urinary tract infection, site not specified; E78.00 Pure hypercholesterolemia, unspecified; I10 Essential (primary) hypertension; J44.9 Chronic obstructive pulmonary disease, unspecified; K21.9 Gastro-esophageal reflux disease without esophagitis; Z20.828 Contact with and (suspected) exposure to other viral communicable diseases; Z88.2 Allergy status to sulfonamides; Z88.1 Allergy status to other antibiotic agents; Z88.0 Allergy status to penicillin; Z79.899 Other long term (current) drug therapy; Z95.0 Presence of cardiac pacemaker
CPT/HCPCS: 36415; 71045; 71250; 80048; 80053; 81001; 84484; 85025; 87086; 87088; 87186; 93005; 99285-25; A9270-GY; J7030; U0002

== ENCOUNTER 2020-11-28 10:54 | Emergency (ER) | payer MEDICAID, MEDICARE ==
--- NOTE | 2020-11-28 11:32 | EDM.PDOC ---
ED HPI GENERAL MEDICAL PROBLEM - General Chief Complaint: Back Pain or Injury Stated Complaint: FELL AND HURT HEAD AND BACK Time Seen by Provider: 11/28/20 11:15 Source of Information: Reports: Patient History Limitations: Reports: No Limitations - History of Present Illness INITIAL COMMENTS - FREE TEXT/NARRATIVE: patient here in the ER due to upper back pain. Reports that she fell last night on her way to the bathroom and landed on here back. no LOC. Also reports mild right sided chest wall pain. No tingling and numbness. Able to move all her extremities without a problem. Patient reports a h/o orthostatic hypotension where she usually feel dizzy when she tried to get up fast. No headache or vision problem. No walking problems this morning. intact memory. fall was witnessed by her daughter who is also her caregiver. Middle Back Pain Score (Numeric/FACES): 4 - Related Data Allergies Allergy/AdvReac Type Severity Reaction Status Date / Time sulfamethoxazole Allergy Nausea Verified 11/28/20 11:19 [From Bactrim] trimethoprim [From Bactrim] Allergy Nausea Verified 11/28/20 11:19 amoxicillin [Amoxicillin] AdvReac Diarrhea Verified 11/28/20 11:19 Home Meds: Home Meds FLUoxetine [PROzac] 20 mg PO DAILY 01/27/14 [History] Omeprazole [Prilosec] 20 mg PO DAILY 01/27/14 [History] traMADol [Ultram] 50 mg PO ASDIRECTED PRN 01/27/14 [History] Lisinopril 20 mg PO BEDTIME 11/29/18 [History] Rivaroxaban [Xarelto] 20 mg PO DAILY 11/29/18 [History] amLODIPine [Norvasc] 2.5 mg PO BEDTIME 11/29/18 [History] Lutein/Minerals/Vit A,C & E [Ocuvite] 1 tab PO DAILY 01/10/19 [History] tiZANidine HCl [Zanaflex] 2 mg PO BID PRN 5 Days #10 capsule 12/18/19 [Rx] Gabapentin [Neurontin] 300 mg PO DAILY 11/28/20 [History] Gabapentin [Neurontin] 600 mg PO BEDTIME 11/28/20 [History] Past Medical History HEENT History: Reports: Cataract, Impaired Vision Cardiovascular History: Reports: High Cholesterol, Hypertension, Pacemaker Respiratory History: Reports: Asthma, COPD Gastrointestinal History: Reports: GERD, Other (See Below) Other Gastrointestinal History: Frequent diarrhea with occasional incontinence Genitourinary History: Reports: Urinary Incontinence 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 ENVIRONMENTAL AIR SPECIALIST History: parity: 4, gravity: 4 Musculoskeletal History: Reports: Arthritis Psychiatric History: Reports: Depression Hematologic History: Reports: Anticoagulation Therapy Oncologic (Cancer) History: Reports: None - Infectious Disease History Infectious Disease History: Reports: Chicken Pox, Measles, Mumps - Past Surgical History HEENT Surgical History: Reports: Cataract Surgery, Visual Cardiovascular Surgical History: Reports: Pacer GI Surgical History: Reports: Appendectomy Female Surgical History: Reports: Oophorectomy Other Musculoskeletal Surgeries/Procedures:: LBP: no sensation changes, no pain into the LEs. walking tolerance: approx 5 min, SOB noted Social & Family History - Family History Family Medical History: No Pertinent Family History Cardiac: Reports: Pacemaker Musculoskeletal: Reports: Arthritis Hematologic: Reports: None - Caffeine Use Caffeine Use: Reports: Coffee ED ROS GENERAL - Review of Systems Review Of Systems: See Below Constitutional: Reports: No Symptoms HEENT: Reports: No Symptoms Respiratory: Reports: No Symptoms GI/Abdominal: Reports: Diarrhea, Distension Skin: Reports: No Symptoms Neurological: Reports: No Symptoms Psychiatric: Reports: No Symptoms ED EXAM, UPPER BACK/NECK PAIN - Physical Exam Exam: See Below Exam Limited By: No Limitations General Appearance: Alert, WD/WN, No Apparent Distress Eye Exam: Bilateral Eye: EOMI, PERRL Head Exam: Atraumatic, Normocephalic. 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 II-XII nml As Tested, No Motor/Sensory Deficits, Alert, Normal Mood/Affect, Oriented x 3 Skin Exam: Normal Color Course - Vital Signs Last Recorded V/S: Last Vital Signs Temp 36.8 C 11/28/20 12:17 Pulse 82 11/28/20 12:17 Resp 18 11/28/20 12:17 BP 180/84 H 11/28/20 12:17 Pulse Ox 98 11/28/20 12:17 - Orders/Labs/Meds Orders: Active Orders 24 hr Category Date Time Status EKG Documentation Completion [RC] ASDIRECTED Care 11/28/20 11:25 Active Ribs 3V w Chest Bi [CR] Stat Exams 11/28/20 11:24 Taken Thoracic Spine 2V [CR] Stat Exams 11/28/20 11:24 Taken EKG 12 Lead [EK] Routine Ther 11/28/20 11:24 Ordered - Re-Assessments/Exams Free Text/Narrative Re-Assessment/Exam: xrays thoracic spine - no acute fractures seen xray ribs - no fractures Departure - Departure Time of Disposition: 12:37 Disposition: Home, Self-Care 01 Condition: Good Clinical Impression: Thoracic spine pain Contusion of right chest wall Qualifiers: Encounter type: initial encounter Qualified Code(s): S20.211A - Contusion of right front wall of thorax, initial encounter - Discharge Information *PRESCRIPTION DRUG MONITORING PROGRAM REVIEWED*: Not Applicable *COPY OF PRESCRIPTION DRUG MONITORING REPORT IN PATIENT ARNOL: Not Applicable Referrals: PCP,None [Primary Care Provider] - Forms: ED Department Discharge Sepsis Event Note (ED) - Focused Exam Vital Signs: Vital Signs Temp Pulse Resp BP Pulse Ox 11/28/20 12:17 36.8 C 82 18 180/84 H 98 - Problem List & Annotations (1) Contusion of right chest wall SNOMED Code(s): 92648984724643855 Code(s): S20.211A - CONTUSION OF RIGHT FRONT WALL OF THORAX, INITIAL ENCOUNTER Status: Acute Priority: Low Current Visit: Yes Qualifiers: Encounter type: initial encounter Qualified Code(s): S20.211A - Contusion of right front wall of thorax, initial encounter (2) Thoracic spine pain SNOMED Code(s): 091084236 Code(s): M54.6 - PAIN IN THORACIC SPINE Status: Acute Priority: Low Current Visit: Yes - Problem List Review Problem List Initiated/Reviewed/Updated: Yes - My Orders Last 24 Hours: My Active Orders 11/28/20 11:24 Ribs 3V w Chest Bi [CR] Stat Thoracic Spine 2V [CR] Stat EKG 12 Lead [EK] Routine 11/28/20 11:25 EKG Documentation Completion [RC] ASDIRECTED - Assessment/Plan Last 24 Hours: My Active Orders 11/28/20 11:24 Ribs 3V w Chest Bi [CR] Stat Thoracic Spine 2V [CR] Stat EKG 12 Lead [EK] Routine 11/28/20 11:25 EKG Documentation Completion [RC] ASDIRECTED Plan: - take tylenol for pain control as needed - recommend to slowly stand up from seating position to avoid any dizziness - follow up with your PCP as needed - return to the ER if any concerns
[2020-11-28 12:18] VITALS: BP 180/84; PULSE 82
--- NOTE | 2020-11-28 15:37 | CR ---
DATE OF SERVICE: 11/28/2020 CLINICAL DATA: Fall. PA CHEST AND BILATERAL RIBS: Comparison is made to a prior exam dated 12/14/2019. The cardiac pacer and pacer wires remain unchanged in position. The heart size is normal. There is prominence of the ascending aorta suggesting aortic valve disease. There is calcification of the aortic arch. The lungs are hyperexpanded. There are mild interstitial changes in both lower lungs. The lungs are otherwise clear. No pneumothorax. No pleural effusions. There is diffuse osteopenia of the bony structures. I do not see any displaced rib fractures. There is degenerative disc disease throughout the thoracic and lumbar spine. There is moderate left convexity scoliosis of the upper lumbar and lower thoracic spine. No other significant findings. [id number] [facility]
--- NOTE | 2020-11-28 15:55 | CR ---
Date of Service: 11/28/20 Clinical Data: fell on her back / upper back pain THORACIC SPINE: No priors. There is diffuse osteopenia. There is mild right convexity scoliosis of the lower thoracic and upper lumbar spine. The vertebral bodies are of average height. No acute fracture or dislocation. There are disk margin spurs throughout the thoracic spine with mild disk space narrowing diffusely. No focal lytic or blastic bone lesions. [id number] [facility]
== END 2020-11-28 13:10 | disposition home or self-care (01) ==
LOC: LB.ED 10:54
DX: S20.211A Contusion of right front wall of thorax, initial encounter (principal); M54.6 Pain in thoracic spine; K21.9 Gastro-esophageal reflux disease without esophagitis; I10 Essential (primary) hypertension; Z95.0 Presence of cardiac pacemaker; Z79.01 Long term (current) use of anticoagulants; Z79.899 Other long term (current) drug therapy; Z88.0 Allergy status to penicillin; Z88.1 Allergy status to other antibiotic agents; W18.39XA Other fall on same level, initial encounter; Y92.002 Bathroom of unspecified non-institutional (private) residence as the place of occurrence of the external cause
CPT/HCPCS: 71111; 72070; 93005; 99283-25

== ENCOUNTER 2021-05-04 21:25 | Emergency (ER) | payer MEDICARE ==
--- NOTE | 2021-05-04 22:17 | EDM.PDOC ---
ED HPI GENERAL MEDICAL PROBLEM - General Chief Complaint: Syncope Stated Complaint: weakness Time Seen by Provider: 05/04/21 22:00 Source of Information: Reports: Patient History Limitations: Reports: No Limitations - History of Present Illness INITIAL COMMENTS - FREE TEXT/NARRATIVE: was brought to the ER with her daughter due to a c/o intermittent dizziness. Symptoms have been going on for 3-4 days and gradually getting worse. When she tried to move from her chair to the kitchen, she feels dizzy and weak to her legs. No CP or palpitations. No abd pain. She uses a cane at home, tho she has a walker. she has underwent a ECHO recently which is normal. h/o afib on pacemaker and Xarelto. Also h/o Htn for which is on lisinopril. She also reports a significant h/o TIAs in the past - no residual weakness. \ No vision problems, no speech problems. no incontinence. she lives at home with her daughter who reports that it's getting very challenging to move her around lately,. - Related Data Allergies Allergy/AdvReac Type Severity Reaction Status Date / Time sulfamethoxazole Allergy Nausea Verified 05/04/21 22:51 [From Bactrim] trimethoprim [From Bactrim] Allergy Nausea Verified 05/04/21 22:51 amoxicillin [Amoxicillin] AdvReac Diarrhea Verified 05/04/21 22:51 Home Meds: Home Meds FLUoxetine [PROzac] 20 mg PO DAILY 01/27/14 [History] Omeprazole [Prilosec] 20 mg PO DAILY 01/27/14 [History] traMADol [Ultram] 50 mg PO ASDIRECTED PRN 01/27/14 [History] Rivaroxaban [Xarelto] 20 mg PO DAILY 11/29/18 [History] Lutein/Minerals/Vit A,C & E [Ocuvite] 1 tab PO DAILY 01/10/19 [History] Gabapentin [Neurontin] 300 mg PO DAILY 11/28/20 [History] Gabapentin [Neurontin] 600 mg PO BEDTIME 11/28/20 [History] Losartan [Cozaar] 50 mg PO DAILY 05/04/21 [History] Past Medical History HEENT History: Reports: Cataract, Impaired Vision Cardiovascular History: Reports: High Cholesterol, Hypertension, Pacemaker Respiratory History: Reports: Asthma, COPD Gastrointestinal History: Reports: GERD, Irritable Bowel Syndrome, Other (See Below) Other Gastrointestinal History: Frequent diarrhea with occasional incontinence Genitourinary History: Reports: Urinary Incontinence 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 ANIMAL TRAPPER History: parity: 4, gravity: 4 Musculoskeletal History: Reports: Arthritis Neurological History: Reports: Neuropathy, Peripheral Psychiatric History: Reports: Depression Hematologic History: Reports: Anticoagulation Therapy Oncologic (Cancer) History: Reports: None - Infectious Disease History Infectious Disease History: Reports: Chicken Pox, Measles, Mumps - Past Surgical History HEENT Surgical History: Reports: Cataract Surgery, Visual Cardiovascular Surgical History: Reports: Pacer Respiratory Surgical History: Reports: None GI Surgical History: Reports: Appendectomy Female Surgical History: Reports: Oophorectomy Neurological Surgical History: Reports: None Other Musculoskeletal Surgeries/Procedures:: LBP: no sensation changes, no pain into the LEs. walking tolerance: approx 5 min, SOB noted Social & Family History - Family History Family Medical History: No Pertinent Family History Cardiac: Reports: Pacemaker Musculoskeletal: Reports: Arthritis Hematologic: Reports: None - Caffeine Use Caffeine Use: Reports: Coffee, Soda ED ROS GENERAL - Review of Systems Review Of Systems: See Below Constitutional: Reports: Fatigue HEENT: Reports: No Symptoms Respiratory: Reports: No Symptoms Cardiovascular: Reports: Lightheadedness GI/Abdominal: Reports: No Symptoms Musculoskeletal: Reports: No Symptoms Skin: Reports: No Symptoms Neurological: Reports: Dizziness Psychiatric: Reports: No Symptoms ED EXAM, DIZZINESS - Physical Exam Exam: See Below Exam Limited By: No Limitations General Appearance: Alert, WD/WN, No Apparent Distress Eye Exam: Bilateral Eye: EOMI, PERRL Ears: Normal External Exam Head Exam: Atraumatic Neck: Normal Inspection Respiratory/Chest: No Respiratory Distress, Lungs Clear, Normal Breath Sounds, No Accessory Muscle Use Cardiovascular: Regular Rate, Rhythm, No Edema GI/Abdominal: Normal Bowel Sounds, Soft, Non-Tender Neurological: Alert, Normal Mood/Affect, No Motor/Sensory Deficits, Oriented x 3 Psychiatric: Normal Affect #1 Interpretation EKG Date: 05/04/21 Time: 22:40 Rhythm: Other (paced ryhthm) Comparison: NA - No Prior EKG Course - Orders/Labs/Meds Orders: Active Orders 24 hr Category Date Time Status EKG Documentation Completion [RC] ASDIRECTED Care 05/04/21 22:03 Active UA RFX LAURA AND CULT IF INDIC [URIN] Stat Lab 05/04/21 22:04 Ordered Sodium Chloride 0.9% [Normal Saline] 1,000 ml Med 05/04/21 23:00 Active IV ASDIRECTED Medication Orders Sodium Chloride (Normal Saline) 1,000 mls @ 250 mls/hr IV ASDIRECTED [facility] Last Admin: 05/04/21 22:45 Dose: 250 mls/hr Documented by: CONWROB Labs: Laboratory Tests 05/04/21 05/04/21 05/05/21 Range/Units 22:03 22:30 00:00 WBC 4.7 D (4.0-11.0) K/uL RBC 4.07 (3.80-5.80) M/uL Hgb 12.8 (11.5-16.5) g/dL Hct 39.3 (37.0-47.0) % MCV 97 H (76-96) fL MCH 31.4 (27.0-32.0) pg MCHC 32.6 (31.0-35.0) g/dL RDW 13.5 (11.0-16.0) % Plt Count 286 D (150-500) K/uL MPV 9.5 (6.0-10.0) fL Sodium 135 L (136-145) mmol/L Potassium 4.0 (3.5-5.1) mmol/L Chloride 101 (98-107) mmol/L Carbon Dioxide 22.3 (21.0-32.0) mmol/L Anion Gap 15.7 H (5.0-15.0) mmol/L BUN 28 H D (8-26) mg/dL Creatinine 1.62 H D (0.55-1.02) mg/dL Est Cr Clr Drug Dosing TNP Estimated GFR (MDRD) 30 L (>60) MLS/MIN BUN/Creatinine Ratio 17.3 (6-25) Glucose 125 H (74-100) mg/dL Calcium 9.1 (8.5-10.1) mg/dL Troponin I < 0.017 (0.000-0.060) ng/mL Meds: Medications Generic Name Dose Route Start Last Admin Trade Name Freq PRN Reason Stop Dose Admin Sodium Chloride 1,000 mls @ 250 mls/hr 05/04/21 23:00 05/04/21 22:45 Normal Saline IV 250 mls/hr ASDIRECTED AUGUST Administration - Re-Assessments/Exams Free Text/Narrative Re-Assessment/Exam: EKG - paced rhythm vitals WNL - HR 60, BP 145/85 labs - CBC, BMP, trop Hgb and Cr around baseline. Trop WNL IVF was given able to ambulate to and from and the bathroom using a cane with no help. Denies dizziness, or palpitations. I can't find a reason to admit the patient to the floor, but I recommended them to discuss obtaining ultra sound carotids - So I have placed an order for this a nd encouraged the patient to schedule an appointment sometimes next week. Departure - Departure Time of Disposition: 00:33 Disposition: Home, Self-Care 01 Condition: Good Clinical Impression: Dizzinesses - Discharge Information *PRESCRIPTION DRUG MONITORING PROGRAM REVIEWED*: Not Applicable *COPY OF PRESCRIPTION DRUG MONITORING REPORT IN PATIENT ARNOL: Not Applicable Instructions: Dizziness, [id number], Dehydration, Adult, [id number] Referrals: PCP,None [Primary Care Provider] - Forms: ED Department Discharge - Problem List & Annotations (1) Dizziness SNOMED Code(s): 021206324, 710197247 Code(s): R42 - DIZZINESS AND GIDDINESS Status: Acute Priority: Low Current Visit: Yes - Problem List Review Problem List Initiated/Reviewed/Updated: Yes - My Orders Last 24 Hours: My Active Orders 05/04/21 22:03 EKG Documentation Completion [RC] ASDIRECTED 05/04/21 22:04 UA RFX LAURA AND CULT IF INDIC [URIN] Stat 05/04/21 23:00 Sodium Chloride 0.9% [Normal Saline] 1,000 ml IV ASDIRECTED - Assessment/Plan Last 24 Hours: My Active Orders 05/04/21 22:03 EKG Documentation Completion [RC] ASDIRECTED 05/04/21 22:04 UA RFX LAURA AND CULT IF INDIC [URIN] Stat 05/04/21 23:00 Sodium Chloride 0.9% [Normal Saline] 1,000 ml IV ASDIRECTED Plan: - increase fluids intake - continue home medications as before - recommend to schedule an appointment for carotids ultra sounds next week - follow up with the PCP - return to the ER if any concerns or worsening of symptoms
[2021-05-04] MEDS ORDERED: Sodium Chloride 0.9% 1,000 ML IV SCH (23:00)
== END 2021-05-05 02:01 | disposition home or self-care (01) ==
LOC: LB.ED 21:25
DX: R42 Dizziness and giddiness (principal); E78.00 Pure hypercholesterolemia, unspecified; I10 Essential (primary) hypertension; J44.9 Chronic obstructive pulmonary disease, unspecified; Z95.0 Presence of cardiac pacemaker; Z88.0 Allergy status to penicillin; Z88.1 Allergy status to other antibiotic agents; Z79.01 Long term (current) use of anticoagulants; Z79.899 Other long term (current) drug therapy
CPT/HCPCS: 36415; 80048; 84484; 85027; 93005; 99284; J7030

== ENCOUNTER 2021-05-09 13:55 | Emergency (ER) | payer MEDICARE ==
[2021-05-09 14:11] VITALS: BP 172/85; PULSE 60
--- NOTE | 2021-05-09 15:26 | CT ---
DATE OF SERVICE: 05/09/2021 CLINICAL DATA: Constipation Unenhanced abdomen and pelvic CT: Multi slice acquisition without IV or oral contrast was performed. No priors. There are mild atelectatic changes in both lung bases. There is a moderate sized hiatal hernia. There is gastric wall thickening in the fundus and body of the stomach. This is probably related to nondistention. Gastritis or an infiltrating process should be considered. The unenhanced liver appears normal. No focal hepatic lesions. The patient is status post cholecystectomy. There is intrahepatic biliary duct dilatation . The common common bile duct is also dilated measuring 13 mm. This is probably related to the prior cholecystectomy. The spleen appears normal. The pancreas is atrophic, otherwise unremarkable. The right and left adrenals appear normal. There is mild atrophy of both kidneys. There is a 13 mm cyst projecting from the right renal cortex. The right and left kidneys otherwise appear normal. No nephrocalcinosis or nephrolithiasis. No hydronephrosis or hydroureter. The bladder is fluid filled. It appears normal. No evidence of appendicitis. There is a loop of small bowel interposed between the liver and the diaphragm. No evidence of associated obstruction. There are also scattered air-fluid levels throughout the small bowel without distention. There is a moderate amount of stool present throughout the colon. There is diverticulosis of the descending and sigmoid colon. No evidence of diverticulitis. No free air. No free fluid. No dilated loops of bowel. No adenopathy. There are atherosclerotic changes throughout the abdominal aorta. It is mildly aneurysmal measuring 3.2 cm in diameter. No evidence of leakage. There is a small fat containing umbilical hernia. There is degenerative disc disease throughout the lumbar spine. MTDD
--- NOTE | 2021-05-09 15:53 | EDM.PDOC ---
ED HPI GENERAL MEDICAL PROBLEM - General Chief Complaint: General Stated Complaint: DIZZY / WEAK Time Seen by Provider: 05/09/21 14:02 - History of Present Illness INITIAL COMMENTS - FREE TEXT/NARRATIVE: This patient presents to the emergency department for evaluation of dizziness and weakness. She is also complaining of constipation. She arrived by EMS because her daughter states she was too weak to walk. She also had a clinic appointment this afternoon which was canceled because she was "too weak." Patient states that she has had dizziness with weakness since the summer and that it has gotten some better in the recent past. She was seen a week ago for the same concern and had a complete work-up with labs, EKG and radiology review evaluation. There are no findings on this work-up. She had a carotid ultrasound yesterday which was negative. Today she is also complaining of constipation and states she has not had a bowel movement in 5 days. She denies any abdominal pain, vomiting, diarrhea around the stool. Her appetite is fair and she is drinking "a lot" of fluids. She denies other concerns or complaints. - Related Data Allergies Allergy/AdvReac Type Severity Reaction Status Date / Time sulfamethoxazole Allergy Nausea Verified 05/09/21 14:11 [From Bactrim] trimethoprim [From Bactrim] Allergy Nausea Verified 05/09/21 14:11 amoxicillin [Amoxicillin] AdvReac Diarrhea Verified 05/09/21 14:11 Home Meds: Home Meds FLUoxetine [PROzac] 20 mg PO DAILY 01/27/14 [History] Omeprazole [Prilosec] 20 mg PO DAILY 01/27/14 [History] traMADol [Ultram] 50 mg PO ASDIRECTED PRN 01/27/14 [History] Rivaroxaban [Xarelto] 20 mg PO DAILY 11/29/18 [History] Lutein/Minerals/Vit A,C & E [Ocuvite] 1 tab PO DAILY 01/10/19 [History] Gabapentin [Neurontin] 300 mg PO DAILY 11/28/20 [History] Gabapentin [Neurontin] 600 mg PO BEDTIME 11/28/20 [History] Losartan [Cozaar] 50 mg PO DAILY 05/04/21 [History] Past Medical History HEENT History: Reports: Cataract, Impaired Vision Cardiovascular History: Reports: High Cholesterol, Hypertension, Pacemaker Respiratory History: Reports: Asthma, COPD Gastrointestinal History: Reports: GERD, Irritable Bowel Syndrome, Other (See Below) Other Gastrointestinal History: Frequent diarrhea with occasional incontinence Genitourinary History: Reports: Urinary Incontinence CHAIN CARRIER History: Reports: Other CHAIN CARRIER History: parity: 4, gravity: 4 Musculoskeletal History: Reports: Arthritis Neurological History: Reports: Neuropathy, Peripheral Psychiatric History: Reports: Depression Hematologic History: Reports: Anticoagulation Therapy Oncologic (Cancer) History: Reports: None - Infectious Disease History Infectious Disease History: Reports: Chicken Pox, Measles, Mumps - Past Surgical History HEENT Surgical History: Reports: Cataract Surgery, Visual Cardiovascular Surgical History: Reports: Pacer Respiratory Surgical History: Reports: None GI Surgical History: Reports: Appendectomy Female Surgical History: Reports: Oophorectomy Neurological Surgical History: Reports: None Other Musculoskeletal Surgeries/Procedures:: LBP: no sensation changes, no pain into the LEs. walking tolerance: approx 5 min, SOB noted Social & Family History - Family History Family Medical History: No Pertinent Family History Cardiac: Reports: Pacemaker Musculoskeletal: Reports: Arthritis Hematologic: Reports: None - Caffeine Use Caffeine Use: Reports: Coffee, Soda ED ROS GENERAL - Review of Systems Review Of Systems: Comprehensive ROS is negative, except as noted in HPI. ED EXAM, GENERAL - Physical Exam Exam: See Below Exam Limited By: No Limitations General Appearance: Alert, No Apparent Distress Eye Exam: Bilateral Eye: PERRL Ears: Normal External Exam, Normal TMs Nose: Normal Inspection Throat/Mouth: Normal Inspection, Normal Oropharynx Head: Atraumatic, Normocephalic Neck: Normal Inspection, Supple, Non-Tender, Full Range of Motion Respiratory/Chest: No Respiratory Distress, Lungs Clear, Normal Breath Sounds, No Accessory Muscle Use Neurological: Alert, Oriented, Normal Cognition Skin Exam: Warm, Dry, Intact Course - Vital Signs Last Recorded V/S: Last Vital Signs Temp 36.6 C 05/09/21 14:04 Pulse 60 05/09/21 14:04 Resp 18 05/09/21 14:04 BP 172/85 H 05/09/21 14:04 Pulse Ox 98 05/09/21 14:04 - Orders/Labs/Meds Orders: Active Orders 24 hr Category Date Time Status PT Evaluation and Treatment [CONS] Routine Cons 05/09/21 14:28 Active CULTURE URINE [RM] Stat Lab 05/09/21 14:10 Received Labs: Laboratory Tests 05/09/21 05/09/21 05/09/21 Range/Units 14:10 14:10 14:10 WBC 7.2 D (4.0-11.0) K/uL RBC 3.55 L (3.80-5.80) M/uL Hgb 11.2 L (11.5-16.5) g/dL Hct 34.1 L (37.0-47.0) % MCV 96 (76-96) fL MCH 31.5 (27.0-32.0) pg MCHC 32.8 (31.0-35.0) g/dL RDW 13.5 (11.0-16.0) % Plt Count 285 (150-500) K/uL MPV 8.9 (6.0-10.0) fL Neut % (Auto) 65.2 (45.0-70.0) % Lymph % (Auto) 22.7 (20.0-40.0) % [place] % (Auto) 10.7 H (3.0-10.0) % Eos % (Auto) 1.1 (1.0-5.0) % Baso % (Auto) 0.3 (0.0-0.5) % Neut # (Auto) 4.71 (2.00-7.50) K/uL Lymph # (Auto) 1.64 (1.50-4.00) K/uL [place] # (Auto) 0.77 (0.20-0.80) K/uL Eos # (Auto) 0.08 (0.04-0.40) K/uL Baso # (Auto) 0.02 (0.02-0.10) K/uL Sodium 137 (136-145) mmol/L Potassium 4.5 (3.5-5.1) mmol/L Chloride 104 (98-107) mmol/L Carbon Dioxide 26.1 (21.0-32.0) mmol/L Anion Gap 11.4 (5.0-15.0) mmol/L BUN 15 D (8-26) mg/dL Creatinine 1.30 H (0.55-1.02) mg/dL Est Cr Clr Drug Dosing 29.31 mL/min Estimated GFR (MDRD) 39 L (>60) MLS/MIN BUN/Creatinine Ratio 11.5 (6-25) Glucose 106 H (74-100) mg/dL Calcium 9.0 (8.5-10.1) mg/dL Total Bilirubin 0.6 D (0.0-1.0) mg/dL AST 13 L (15-37) U/L ALT 14 (12-78) U/L Alkaline Phosphatase 75 (46-116) U/L Total Protein 6.7 (6.4-8.2) g/dL Albumin 3.2 L (3.4-5.0) g/dL Globulin 3.5 (2.2-4.2) g/dL Albumin/Globulin Ratio 0.9 (0.8-2.0) Urine Color Yellow Urine Appearance Slightly cloudy (CLEAR) Urine pH 6.0 (5.0-8.0) Ur Specific [place] 1.020 (1.003-1.030) Urine Protein Negative (NEGATIVE) mg/dL Urine Glucose (UA) Negative (NEGATIVE) mg/dL Urine Ketones Negative (NEGATIVE) mg/dL Urine Occult Blood Negative (NEGATIVE) Urine Nitrite Negative (NEGATIVE) Urine Bilirubin Negative (NEGATIVE) Urine Urobilinogen 0.2 (0.2-1.0) E.U./dL Ur Leukocyte Esterase Small H (NEGATIVE) Urine RBC 0-5 H /HPF Urine WBC 30-40 H /HPF Urine WBC Clumps Few /HPF Ur Squamous Epith Cells Moderate /HPF Urine Bacteria Moderate H /HPF - Re-Assessments/Exams Free Text/Narrative Re-Assessment/Exam: This patient presents to the emergency department for evaluation of dizziness, weakness, and constipation. History and clinical findings are most consistent w ith a diagnosis of labyrinthitis. She was evaluated by physical therapy while in the emergency department and was found to be negative for the Jesús-Hallpike test for vertigo. Elements of her work-up here included an EKG which was negative for acute findings and changes, lab work which was normal, and a CT of her abdomen and pelvis which identified a moderate stool burden but was without other findings. Her daughter was very upset that she would not be seen by "While she was here-however, he was able to come to the emergency department and talk with them. The family did request admission of the patient to the hospital because I do not feel she can be at home safely in their care. They were told there is not a medical reason for her admission and there are insufficient beds and nursing staff for this at this time. While she was in the emergency department she was able to walk to the bathroom with minimal assistance and minimal dizziness. She does have an appointment with [facility] on Wednesday for evaluation for further services. She was discharged to home in the care of her daughters. They were instructed to use a fleets enema or magnesium citrate for her constipation. She was stable at the time of discharge. 05/09/21 16:07 Departure - Departure Time of Disposition: 15:50 Disposition: Home, Self-Care 01 Condition: Good Clinical Impression: Weakness, Constipation, Labyrinthitis - Discharge Information Instructions: Vertigo, [id number], Labyrinthitis Referrals: PCP,None [Primary Care Provider] - Forms: ED Department Discharge Additional Instructions: You can treat her constipation with a Fleets Enema or by drinking a bottle of Magnesium Citrate. You can get these things at the drug store or the dollar store. Sepsis Event Note (ED) - Focused Exam Vital Signs: Vital Signs Temp Pulse Resp BP Pulse Ox 05/09/21 14:04 36.6 C 60 18 172/85 H 98 - My Orders Last 24 Hours: My Active Orders 05/09/21 14:10 CULTURE URINE [RM] Stat 05/09/21 14:28 PT Evaluation and Treatment [CONS] Routine - Assessment/Plan Last 24 Hours: My Active Orders 05/09/21 14:10 CULTURE URINE [RM] Stat 05/09/21 14:28 PT Evaluation and Treatment [CONS] Routine
== END 2021-05-09 16:10 | disposition home or self-care (01) ==
LOC: LB.ED 13:55
DX: K59.00 Constipation, unspecified (principal); R53.1 Weakness; H83.09 Labyrinthitis, unspecified ear; I10 Essential (primary) hypertension; J44.9 Chronic obstructive pulmonary disease, unspecified; K21.9 Gastro-esophageal reflux disease without esophagitis; Z88.2 Allergy status to sulfonamides; Z88.0 Allergy status to penicillin; Z79.01 Long term (current) use of anticoagulants; Z79.899 Other long term (current) drug therapy
CPT/HCPCS: 36415; 74176; 80053; 81001; 85025; 87086; 87088; 87186; 93005; 99285-25; A0425; A0429

== ENCOUNTER 2021-10-28 12:24 | Emergency (ER) | payer MEDICARE ==
[2021-10-28] MEDS: Orphenadrine 60 MG/2 ML Inj IV ONE (13:58)
[2021-10-28] MEDS: Acetaminophen/oxyCODONE 325-5 MG Tab PO PRN (13:58)
[2021-10-28] MEDS ORDERED: Orphenadrine 60 MG/2 ML Inj ONE (14:04)
[2021-10-28] MEDS ORDERED: Acetaminophen/oxyCODONE 325-5 MG Tab ONE (14:04)
[2021-10-28] MEDS: hydrALAZINE 10 MG Tab PO ONE (14:33)
[2021-10-28 14:42] VITALS: BP 195/83; PULSE 73
[2021-10-28] MEDS: Potassium Chloride 10% 20 MEQ/15 ML Soln 15 ML UD Cup PO ONE (15:18)
== END 2021-10-28 16:45 ==
LOC: LB.ED 12:24
DX: R20.0 Anesthesia of skin (principal); R20.2 Paresthesia of skin; M54.41 Lumbago with sciatica, right side; E78.00 Pure hypercholesterolemia, unspecified; J44.9 Chronic obstructive pulmonary disease, unspecified; I16.0 Hypertensive urgency; I10 Essential (primary) hypertension; K21.9 Gastro-esophageal reflux disease without esophagitis; Z95.5 Presence of coronary angioplasty implant and graft; Z88.1 Allergy status to other antibiotic agents; Z88.0 Allergy status to penicillin; Z79.899 Other long term (current) drug therapy
CPT/HCPCS: 36415; 70450; 80048; 81001; 81003; 83605; 85025; 87086; 87088; 87186; 93005; 93010; 96374; 99284; 99285-25; A0425; A0429; A9270-GY; J2360